=== PATIENT | male | born 1965 | race Caucasian/White ===

== ENCOUNTER → 2019-06-07 | Outpatient (CLI) | payer OTHER ==
--- NOTE | 2019-06-07 14:12 | RAD ---
EXAM: Left extremity arterial Doppler sonogram with ankle-brachial indices (ROSEY). HISTORY: Nonhealing wounds. TECHNIQUE: Doppler sonographic evaluation of the left lower extremity was performed and pressure readings were assessed. FINDINGS: Left brachial pressure: 153 mmHg Left ankle pressure: 165 mmHg Left ROSEY: 1.1 There is an upper limits of normal systolic velocity within the left common femoral artery triphasic waveform. There is a normal triphasic waveform and peak systolic velocity within the proximal left superficial femoral artery. There is an elevated peak systolic velocity within the mid left superficial artery suggesting hemodynamically significant stenosis. There are also monophasic waveforms throughout the remainder of the left lower extremity arteries. No occlusion is seen. IMPRESSION: 1. Suspected hemodynamically significant stenosis within the mid left superficial femoral artery. 2. Monophasic waveforms throughout the left lower extremity arteries, with exception of triphasic waveforms within the common femoral and proximal superficial femoral arteries. This suggests hemodynamically significant proximal stenosis. 2. No evidence of arterial occlusion. 4. Normal left ankle-brachial index. Electronically signed by: Marisel Mittal MD (06/07/2019 2:09 PM) [place] [id number]
== END | disposition home or self-care (01) ==
LOC: US 12:02
PROVIDERS: ATTEND Emergency Medicine Undersea and Hyperbaric Medicine
DX: S81.802A Unspecified open wound, left lower leg, initial encounter (principal); E11.51 Type 2 diabetes mellitus with diabetic peripheral angiopathy without gangrene; I13.0 Hypertensive heart and chronic kidney disease with heart failure and stage 1 through stage 4 chronic kidney disease, or unspecified chronic kidney disease; E11.22 Type 2 diabetes mellitus with diabetic chronic kidney disease; N18.9 Chronic kidney disease, unspecified; I50.9 Heart failure, unspecified; E78.5 Hyperlipidemia, unspecified; M19.90 Unspecified osteoarthritis, unspecified site; J44.9 Chronic obstructive pulmonary disease, unspecified; K21.9 Gastro-esophageal reflux disease without esophagitis; F32.9 Major depressive disorder, single episode, unspecified; Z87.891 Personal history of nicotine dependence; X58.XXXA Exposure to other specified factors, initial encounter; Y93.89 Activity, other specified; Y92.89 Other specified places as the place of occurrence of the external cause; Y99.8 Other external cause status
CPT/HCPCS: 93922; 93926

== ENCOUNTER 2019-11-22 10:16 | Outpatient (CLI) | payer MEDICAID, MEDICARE ==
[2019-11-22] VITALS (8 sets, daily range): BP systolic 130–185; BP diastolic 80–106
[~2019-11-22] VITALS: Ht 175.3 cm; Wt 102.5 kg
[~2019-11-22 10:16] MED LIST: IODIXANOL 320 MG/ML 100 ML VIAL. ONE; LIDOCAINE 1% Multi-Dose 20 ML VIAL. ONE
[2019-11-22] MEDS ORDERED: IV NORMAL SALINE 1000ML BAG 1,000 ML IV SCH (10:34)
[2019-11-22 10:57] LABS: CALCIUM 8.6 mg/dL (8.5-10.1); CREATININE 1.5 mg/dL (0.7-1.3); GFR 48.8; POTASSIUM 4.6 mmol/L (3.5-5.1)
[2019-11-22 11:03] LABS: HEMATOCRIT 47.3 % (39.0-53.0); HEMOGLOBIN 15.5 g/dL (13.0-17.5); RED BLOOD COUNT 4.28 x10^6/uL (4.30-5.70); RED CELL DISTRIBUTION WIDTH 17.2 % (11.5-14.5); WHITE BLOOD COUNT 10.1 x10^3/uL (4.0-11.0)
[2019-11-22] MEDS ORDERED: ASPI1TAB31 PO (11:04)
[2019-11-22] MEDS ORDERED: CARV6.2511 PO (11:04)
[2019-11-22] MEDS ORDERED: INSU100V13 SQ (11:04)
[2019-11-22] MEDS ORDERED: OMEP40CA45 PO (11:04)
[2019-11-22] MEDS ORDERED: GABA300C18 PO (11:04)
[2019-11-22] MEDS ORDERED: BUDE10.2 IH (11:04)
[2019-11-22] MEDS ORDERED: HYDR-2765 PO (11:04)
[2019-11-22] MEDS ORDERED: ALBU2.5V8 IH (11:04)
[2019-11-22] MEDS ORDERED: CHOL200078 PO (11:04)
[2019-11-22] MEDS ORDERED: ATOR40TA59 PO (11:04)
[2019-11-22] MEDS ORDERED: TAMS0.4C97 PO (11:04)
[2019-11-22] MEDS ORDERED: LISI-338 PO (11:04)
[2019-11-22] MEDS ORDERED: INSU100I17 SQ (11:04)
[2019-11-22] MEDS ORDERED: MIDAZOLAM HCL/PF 2 MG/2 ML VIAL. ONE (12:03)
[2019-11-22] MEDS ORDERED: fentaNYL PF VIAL 100 MCG/2 ML VIAL ONE (12:03)
[2019-11-22] MEDS ORDERED: MIDAZOLAM HCL/PF 2 MG/2 ML VIAL. IV ONE (12:15)
[2019-11-22] MEDS ORDERED: IODIXANOL 320 MG/ML 100 ML VIAL. IART ONE (12:15)
[2019-11-22] MEDS ORDERED: fentaNYL PF VIAL 100 MCG/2 ML VIAL IV ONE (12:15)
[2019-11-22] MEDS ORDERED: LIDOCAINE 1% Multi-Dose 20 ML VIAL. INJ ONE (12:15)
[2019-11-22] MEDS ORDERED: CONTRAST GIVEN. MC PRN (12:30)
[2019-11-22] MEDS ORDERED: HEPARIN for IV BOLUS 10,000 UNIT/10 ML VIAL. ONE (13:40)
[2019-11-22] MEDS ORDERED: HEPARIN for IV BOLUS 10,000 UNIT/10 ML VIAL. IV ONE (13:45)
[2019-11-22] MEDS ORDERED: CLOPIDOGREL BISULFATE 75 MG TABLET ONE (14:04)
[2019-11-22] MEDS ORDERED: CLOPIDOGREL BISULFATE 75 MG TABLET PO ONE (14:15)
--- NOTE | 2019-11-22 14:35 | PDOC4 ---
OPERATIVE NOTE Date: Date: Nov 22, 2019 Pre-Op Diagnosis: Atherosclerosis of [place]qu[place] arteries of left lower extremity with ulceration of other part of the foot (toes) Diabetes mellitus with peripheral vascular disease Post-Op Diagnosis: Same as above Procedure Performed: 1. Ultrasound-guided access right common femoral artery 2. left superficial femoral artery balloon angioplasty #3 radiology supervision interpretation aortogram #4 radiology supervision for potential left lower extremity runoff 5 closure device placement 6 [place]ian Angio-Seal right femoral artery access Surgeon: Nain Villalobos MD Anesthesia Type: Conscious sedation under surgeon RN supervision using intravenous fentanyl and Versed 34 minutes total, Versed 1.5 mg fentanyl 100 mcg Blood Loss: Minimal Specimans Obtained: None Findings: On carbon dioxide angiography the aorta is widely patent without aneurysm or significant stenosis, on carbon oxide angiogram the iliac arteries are widely patent without significant stenosis Left common femoral profunda femoris appear widely patent Left superficial femoral artery with diffuse calcified stenosis, multiple focal areas over 50% After balloon angioplasty there is minimal residual stenosis and no dissection therefore this was treated with a drug-eluting balloon There is a high takeoff of the anterior tibial artery which gives inline flow to the foot and good collateralization to the pedal arch Complications: None Operative Note: Patient was taken to the Senior Applications Architect and placed supine the table. The groins were prepped and draped in usual sterile fashion a timeout was performed. After placement of appropriate monitoring devices conscious sedation was induced under surgeon or in supervision using intravenous fentanyl and Versed. Attention was directed the right groin where the right common femoral arteries fluoroscopically marked over the femoral head and exam with ultrasound. The vessels found to be widely patent with flow in an image of the vessels taken and saved for the medical record. Under real-time ultrasound guidance local anesthetic was injected in the right groin the right common femoral artery was accessed in retrograde fashion using micropuncture needle. This was used to introduce a micropuncture wire to the aorta and exchanged the needle for a micropuncture sheath. This back blood easily was used to introduce a Bentson wire and abdominal aorta. The Bentson wire was used to exchange the micropuncture sheath for a 5 [place]ian [place] sheath and this was aspirated flushed with difficulty. These were used to introduce a flush catheter abdominal aorta and a carbon dioxide aortogram was obtained. The cath was pulled back to the right bifurcation and oblique pelvic angiograms were obtained using carbon dioxide. The cath was used to acute bifurcation and passed a wire and then the catheter in the left common femoral artery and left leg runoff was obtained with carbon dioxide for the SFA and 50% contrast for the popliteal and tibial vessels. Based on these we decided to intervene on the SFA for limb salvage given the nonhealing wound to left foot. A supra core wire was passed to the catheter into the left popliteal artery and used to exchange the 5 Mal[place]ian sheath for a 6 Malawian 45 cm Terumo destination sheath passed up and over the bifurcation with the distal tip in the left common femoral artery. Patient was given intravenous heparin as this was done. I used the wire to introduce a 6 x 200 Rogers angioplasty balloon and performed angioplasty of the entire SFA. Follow-up angiography showed minimal residual stenosis without dissection or complication so therefore I treated the entire SFA with a 6 x 250 cm Admiral drug-eluting balloon. The patient is a poor candidate for surgery, already has an amputation on the other side is medically ill therefore felt this was justified. The completion anagrams showed minimal stenosis throughout the SFA, the popliteals widely patent in the anterior tibial runoff was uncompromised to the foot with brisk flow up to the foot and open pedal arch. The sheath was pulled back to the right bifurcation and the wire was advanced into the aorta. The sheath was removed over the wire and the wire was used to deliver a 6 [place] Angio-Seal device which was deployed at the right femoral artery access site with excellent hemostasis. Patient was escorted recovery. He was loaded with 300 mg of Plavix and will be continued on Plavix for the next 3 months or so. There were no complications in her told her procedure well throughout. I discussed the results with him and his . MANUEL VILLALOBOS MD Nov 22, 2019 14:35
[2019-11-22] MEDS ORDERED: CLOP75TA PO (14:55)
--- NOTE | 2019-11-22 16:13 | NUR ---
Discharge Note: JOANN CHAMPION Discharge instructions and discharge home medications reviewed with Patient and a copy given. All questions have been answered and understanding verbalized. The following instructions and handouts were given: groin site care and adult moderate sedation Discontinued lines and drains: Peripheral IV intact. Patient discharged to Home or Self Care withSpousevia Wheelchair
== END 2019-11-22 16:12 | disposition home or self-care (01) ==
LOC: CCL 10:16
PROVIDERS: ATTEND Surgery Vascular Surgery
DX: I70.245 Atherosclerosis of native arteries of left leg with ulceration of other part of foot (principal); L97.529 Non-pressure chronic ulcer of other part of left foot with unspecified severity; E11.9 Type 2 diabetes mellitus without complications
CPT/HCPCS: 36415; 37224; 75625; 75710; 76937; 80048; 85027; 85610; C1725; C1760; C1769; C1892; C1894; C2623; J1644; J2250; J3010; J3490; J7030; Q9967; 99152; 99153; G0269; C1771

== ENCOUNTER → 2020-02-05 | Outpatient (CLI) | payer MEDICARE, OTHER ==
[2019-11-22 15:44] VITALS: BP 182/106
[~2020-02-05] MED LIST changes: +ALBU2.5V8 IH; +ASPI1TAB31 PO; +ATOR40TA59 PO; +BUDE10.2 IH; +CARV6.2511 PO; +CETI10TA16 PO; +CHOL200078 PO; +CLOP75TA PO; +GABA300C18 PO; +HEPARIN SODIUM 5,000 UNIT in IV NORMAL SALINE 500ML BAG 500 ML IRR ONE; +HYDR-2765 PO; +INSU100I17 SQ; +INSU100V13 SQ; -IODIXANOL 320 MG/ML 100 ML VIAL. ONE; -LIDOCAINE 1% Multi-Dose 20 ML VIAL. ONE; +LISI-338 PO; +METO10TA81 PO; +NITR0.4T22 SL; +OLAN7.5T5 PO; +OMEP40CA45 PO; +PRAV80TA2 PO; +TAMS0.4C97 PO; +TEST5GEL TD; +TORS10TA3 PO; +VENL37.5 PO
== END | disposition home or self-care (01) ==
LOC: LAB 12:29
PROVIDERS: ATTEND Surgery Vascular Surgery
DX: Z01.818 Encounter for other preprocedural examination (principal); Z11.59 Encounter for screening for other viral diseases; I73.9 Peripheral vascular disease, unspecified
CPT/HCPCS: C9803; U0003; 36415

== ENCOUNTER → 2020-02-14 | Day surgery (SDC) | payer MEDICARE, OTHER ==
[~2020-02-14] VITALS: Ht 175.3 cm; Wt 93.4 kg
[~2020-02-14] MED LIST changes: +ASPI-630 PO; +ASPI325T8 PO; +BUPIVACAINE MPF 0.5% 30 ML VIAL. ONE; +BUPR200T2 PO; +BUSP5TAB PO; +CARV25TA2 PO; +CEPH-264 PO; +CRESTOR5 MG PO; +DEXAMETHASONE SOD PHOS 4 MG/ML VIAL ONE; +GELATIN SPONGE SIZE 12-7MM SPONGE. ONE; +HYDROmorphone 2 MG/ML VIAL IV PRN; +INSULIN LISPRO 100 UNIT/ML 3ML VIAL for OP,RR ONLY. SQ PRN; +IOHEXOL 300 MG/ML 50 ML VIAL. ONE; +ISOS20TA2 PO; +IV RINGERS,LACTATED 1000ML 1,000 ML IV SCH; +LIDOCAINE 1% Multi-Dose 20 ML VIAL. ONE; +LIDOCAINE 2% PF 5 ML VIAL. ONE; +LISI2.5T PO; +MORPHINE SULFATE 2 MG/ML VIAL. IV PRN; +NYST15PO9 TP; +ONDANSETRON PF 4 MG/2 ML VIAL. IV PRN; +ONDANSETRON PF 4 MG/2 ML VIAL. ONE; +PAPAVERINE 60 MG/2 ML VIAL. ONE; +PROPOFOL 10 MG/ML (20ML) VIAL. IV ONE; +ROCURONIUM 50 MG/5 ML VIAL. ONE; +SURGICEL FIBRILLAR 1X2 EACH. ONE; +TESTOSTERONE 1.62%; +THROMBIN TOPICAL 5,000 UNIT VIAL. ONE; +VENL150C PO; +fentaNYL PF VIAL 100 MCG/2 ML VIAL IV PRN; +fentaNYL PF VIAL 100 MCG/2 ML VIAL ONE
[2020-02-14 10:40] VITALS: BP 156/81
[2020-02-14 11:05] LABS: CALCIUM 8.2 mg/dL (8.5-10.1); CREATININE 1.7 mg/dL (0.7-1.3); GFR 42.1; POTASSIUM 4.8 mmol/L (3.5-5.1)
[2020-02-14 11:40] LABS: BASO % 1 % (0-3); EOS # 0.2 x10^3/uL (0.0-0.7); EOS % 2 % (0-3); HEMATOCRIT 44.5 % (39.0-53.0); HEMOGLOBIN 14.6 g/dL (13.0-17.5); LYMPH # 1.1 x10^3/uL (1.0-4.8); LYMPH % 15 % (24-48); MEAN CORPUSCULAR HEMOGLOBIN 36 pg (25-35); MEAN CORPUSCULAR HGB CONC 33 g/dL (31-37); MEAN CORPUSCULAR VOLUME 110 fL (79-100); MONO # 0.6 x10^3/uL (0.0-1.1); MONO % 8 % (0-9); NEUT # 5.8 x10^3/uL (1.8-7.7); NEUT % 75 % (31-73); PLATELET COUNT 82 x10^3/uL (140-400); RED BLOOD COUNT 4.06 x10^6/uL (4.30-5.70); WHITE BLOOD COUNT 7.8 x10^3/uL (4.0-11.0)
--- NOTE | 2020-02-14 12:27 | NUR ---
AFTER SPEAKING TO DR MUNROE PT HAS CHOSEN TO FORGO SURGERY AND REQUESTS IV BE REMOVED SO HE CAN LEAVE. SL REMOVED AND PTS ASSISTING HIM IN RE DRESSING.
== END ==
LOC: OPSVCIP 10:03 → SDC 10:03 → UNDOADMIN 10:03 → EDSTATUS 12:00 → UNDODISIN 12:27
PROVIDERS: ATTEND Surgery Vascular Surgery
DX: Z53.20 Procedure and treatment not carried out because of patient's decision for unspecified reasons (principal); R60.0 Localized edema; Z68.30 Body mass index [BMI] 30.0-30.9, adult; T87.89 Other complications of amputation stump; E11.622 Type 2 diabetes mellitus with other skin ulcer; L97.212 Non-pressure chronic ulcer of right calf with fat layer exposed; G47.30 Sleep apnea, unspecified; F17.210 Nicotine dependence, cigarettes, uncomplicated; E78.5 Hyperlipidemia, unspecified; I73.9 Peripheral vascular disease, unspecified; K21.9 Gastro-esophageal reflux disease without esophagitis; Z79.01 Long term (current) use of anticoagulants; Z89.9 Acquired absence of limb, unspecified; Z86.73 Personal history of transient ischemic attack (TIA), and cerebral infarction without residual deficits; I12.9 Hypertensive chronic kidney disease with stage 1 through stage 4 chronic kidney disease, or unspecified chronic kidney disease
CPT/HCPCS: 36415; 80048; 82962; 85025; J1815; J3010; J7120; J0690; J1100; J1644; J2405; J2440; J2704; J3490; J7040; Q9967

== ENCOUNTER → 2020-03-28 | Outpatient (CLI) | payer MEDICARE, OTHER ==
[2020-02-14 10:40] VITALS: BP 156/81
[~2020-03-28] MED LIST changes: -BUPIVACAINE MPF 0.5% 30 ML VIAL. ONE; -DEXAMETHASONE SOD PHOS 4 MG/ML VIAL ONE; -GELATIN SPONGE SIZE 12-7MM SPONGE. ONE; -HEPARIN SODIUM 5,000 UNIT in IV NORMAL SALINE 500ML BAG 500 ML IRR ONE; -HYDROmorphone 2 MG/ML VIAL IV PRN; -INSULIN LISPRO 100 UNIT/ML 3ML VIAL for OP,RR ONLY. SQ PRN; -IOHEXOL 300 MG/ML 50 ML VIAL. ONE; -IV RINGERS,LACTATED 1000ML 1,000 ML IV SCH; -LIDOCAINE 1% Multi-Dose 20 ML VIAL. ONE; -LIDOCAINE 2% PF 5 ML VIAL. ONE; -MORPHINE SULFATE 2 MG/ML VIAL. IV PRN; -ONDANSETRON PF 4 MG/2 ML VIAL. IV PRN; -ONDANSETRON PF 4 MG/2 ML VIAL. ONE; -PAPAVERINE 60 MG/2 ML VIAL. ONE; -PROPOFOL 10 MG/ML (20ML) VIAL. IV ONE; -ROCURONIUM 50 MG/5 ML VIAL. ONE; -SURGICEL FIBRILLAR 1X2 EACH. ONE; -THROMBIN TOPICAL 5,000 UNIT VIAL. ONE; -fentaNYL PF VIAL 100 MCG/2 ML VIAL IV PRN; -fentaNYL PF VIAL 100 MCG/2 ML VIAL ONE
== END | disposition home or self-care (01) ==
LOC: LAB 12:35
PROVIDERS: ATTEND Surgery Vascular Surgery
DX: Z01.818 Encounter for other preprocedural examination (principal); Z11.59 Encounter for screening for other viral diseases
CPT/HCPCS: C9803; U0003

== ENCOUNTER 2020-04-03 07:52 | Inpatient (IN) | payer MEDICARE, OTHER ==
[~2020-04-03] VITALS: Ht 175.3 cm; Wt 117.4 kg
[2020-04-03] VITALS (11 sets, daily range): BP systolic 132–163; BP diastolic 63–83
[~2020-04-03 07:52] MED LIST changes: -ASPI325T8 PO; -BUSP5TAB PO; -CEPH-264 PO; +HEPARIN SODIUM 5,000 UNIT in IV NORMAL SALINE 500ML BAG 500 ML IRR ONE; +HYDROmorphone 2 MG/ML VIAL IV PRN; +IV RINGERS,LACTATED 1000ML 1,000 ML IV SCH; +LIDOCAINE 1% PF 2 ML VIAL. ID PRN; -LISI2.5T PO; -NYST15PO9 TP; +ONDANSETRON PF 4 MG/2 ML VIAL. IV PRN; +PROCHLORPERAZINE 10 MG/2 ML VIAL. IV PRN; -TESTOSTERONE 1.62%; -VENL150C PO; +fentaNYL PF VIAL 100 MCG/2 ML VIAL IV PRN
[2020-04-03] MEDS: INSULIN LISPRO 100 UNIT/ML 3ML VIAL for OP,RR ONLY. SQ PRN ×2 (08:34→15:05)
[2020-04-03 08:41] LABS: BASO # 0.1 x10^3/uL (0.0-0.2); BASO % 1 % (0-3); EOS # 0.2 x10^3/uL (0.0-0.7); EOS % 2 % (0-3); HEMOGLOBIN 14.1 g/dL (13.0-17.5); LYMPH # 1.5 x10^3/uL (1.0-4.8); LYMPH % 11 % (24-48); MEAN CORPUSCULAR HEMOGLOBIN 35 pg (25-35); MEAN CORPUSCULAR HGB CONC 33 g/dL (31-37); MEAN CORPUSCULAR VOLUME 105 fL (79-100); MONO # 0.8 x10^3/uL (0.0-1.1); MONO % 6 % (0-9); NEUT # 10.9 x10^3/uL (1.8-7.7); NEUT % 80 % (31-73); PLATELET COUNT 197 x10^3/uL (140-400); RED BLOOD COUNT 4.09 x10^6/uL (4.30-5.70); RED CELL DISTRIBUTION WIDTH 17.3 % (11.5-14.5); WHITE BLOOD COUNT 13.6 x10^3/uL (4.0-11.0)
[2020-04-03] MEDS ORDERED: GLYCOPYRROLATE 1 MG/5 ML VIAL. ONE (08:46)
[2020-04-03] MEDS ORDERED: SEVOFLURANE > 120 MINUTES. IH ONE (08:46)
[2020-04-03] MEDS ORDERED: NEOSTIGMINE METHYLSULFATE 5 MG/5 ML SYRINGE. ONE (08:47)
[2020-04-03] MEDS ORDERED: MIDAZOLAM HCL/PF 2 MG/2 ML VIAL. ONE (08:47)
[2020-04-03] MEDS ORDERED: ROCURONIUM 50 MG/5 ML VIAL. ONE (08:47)
[2020-04-03] MEDS ORDERED: LIDOCAINE 2% PF 5 ML VIAL. ONE (08:47)
[2020-04-03] MEDS ORDERED: PROPOFOL 10 MG/ML (20ML) VIAL. IV ONE (08:47)
[2020-04-03] MEDS ORDERED: fentaNYL PF VIAL 100 MCG/2 ML VIAL ONE ×3 (08:47→14:37)
[2020-04-03] MEDS ORDERED: ONDANSETRON PF 4 MG/2 ML VIAL. ONE (08:48)
[2020-04-03] MEDS ORDERED: DEXAMETHASONE SOD PHOS 4 MG/ML VIAL ONE (08:48)
[2020-04-03 08:54] LABS: CALCIUM 9.1 mg/dL (8.5-10.1); CREATININE 1.8 mg/dL (0.7-1.3); GFR 39.4; POTASSIUM 4.7 mmol/L (3.5-5.1)
[2020-04-03] MEDS ORDERED: IOHEXOL 300 MG/ML 50 ML VIAL. ONE (09:22)
[2020-04-03] MEDS ORDERED: SURGICEL FIBRILLAR 1X2 EACH. ONE (09:23)
[2020-04-03] MEDS ORDERED: BUPIVACAINE-EPI 0.25%-1:200000 MPF 30 ML VIAL. ONE ×2 (10:33→10:58)
[2020-04-03] MEDS ORDERED: HEPARIN for IV BOLUS 10,000 UNIT/10 ML VIAL. ONE (10:54)
[2020-04-03] MEDS ORDERED: PROTAMINE 50 MG/5 ML VIAL. IV ONE (12:43)
--- NOTE | 2020-04-03 13:44 | PDOC1 ---
History and Physical Date of Admission Date of Admission DATE: 04/03/20 TIME: 13:39 Identification/Chief Complaint Chief Complaint 54-year-old male with known peripheral vascular disease, diabetes mellitus, history of below-knee amputation on the right in 2017 who has significant common femoral and profunda femoral occlusive disease which is felt to be contributing to his lack of wound healing of a new wound on his distal right BKA stump. He has previously undergone angiography and presents today for elective right iliofemoral profundofemoral endarterectomy and some debridement to attempt to save his BKA stump Source Source: Patient History of Present Illness History of Present Illness Patient is a 54-year-old male with diabetes mellitus, coronary disease, dyslipidemia, history of stroke, history of right below-knee amputation due to above and PAD. His initial right below-knee amputation was in 2017. He presented back with a new wound on the distal stump of the BKA that failed to heal despite aggressive wound care. I took him to the Assistant Baseball Coach and performed a diagnostic angiography and this suggested limited flow to the BKA stump due to iliofemoral occlusive disease. I counseled him on options and he presents today for iliofemoral endarterectomy and profundofemoral endarterectomy to maximize blood flow to the BKA stump to attempt to heal this wound. The procedure to include risks, benefits, alternatives were discussed with him extensively preoperatively presents today and wishes to proceed. Of note, we will try to get this procedure done several weeks ago but he showed up and then left AGAINST MEDICAL ADVICE and refused the procedure the date was scheduled. Today he is agreeable and wishes to proceed. Past Medical History Cardiovascular: HTN, Hyperlipidemia CENTRAL NERVOUS SYSTEM: Migraine Renal/: Chronic renal insuff, Prostate Ca. Endocrine: Diabetes Past Surgical History Past Surgical History Below-knee amputation right Past Surgical History: Cholecystectomy Social History ALCOHOL: occassional Drugs: None Current Medications Current Medications Current Medications Heparin Sodium (Porcine) 5000 unit/Sodium Chloride 505 ml @ 505 mls/hr 1X ONCE IRR Last administered on 04/03/20at 11:32; Start 04/03/20 at 06:00; Stop 04/03/20 at 06:59; Status DC Cefazolin Sodium 1 gm/Sodium Chloride 500 ml @ 500 mls/hr 1X ONCE IRR ; Start 04/03/20 at 06:00; Stop 04/03/20 at 06:59; Status DC Ondansetron HCl (Zofran) 4 mg PRN Q6HRS PRN IV NAUSEA/VOMITING; Start 04/03/20 at 07:00; Stop 04/04/20 at 06:59 Fentanyl Citrate (Fentanyl 2ml Vial) 25 mcg PRN Q5MIN PRN IV MILD PAIN 1-3; Start 04/03/20 at 07:00; Stop 04/04/20 at 06:59 Fentanyl Citrate (Fentanyl 2ml Vial) 50 mcg PRN Q5MIN PRN IV MODERATE TO SEVERE PAIN; Start 04/03/20 at 07:00; Stop 04/04/20 at 06:59 Morphine Sulfate (Morphine Sulfate) 1 mg PRN Q10MIN PRN IV SEVERE PAIN 7-10; Start 04/03/20 at 07:00; Stop 04/04/20 at 06:59 Ringer's Solution 1,000 ml @ 30 mls/hr Q24H IV Last administered on 04/03/20at 08:36; Start 04/03/20 at 07:00; Stop 04/03/20 at 18:59 Lidocaine HCl (Xylocaine-Mpf 1% 2ml Vial) 2 ml PRN 1X PRN ID PRIOR TO IV START; Start 04/03/20 at 07:00; Stop 04/04/20 at 06:59 Hydromorphone HCl (Dilaudid) 0.5 mg PRN Q10MIN PRN IV SEV PAIN, Second choice; Start 04/03/20 at 07:00; Stop 04/04/20 at 06:59 Prochlorperazine Edisylate (Compazine) 5 mg PACU PRN PRN IV NAUSEA, MRX1; Start 04/03/20 at 07:00; Stop 04/04/20 at 06:59 Cefazolin Sodium/ Dextrose 50 ml @ 100 mls/hr 1X PREOP PRN IV PRIOR TO PROCEDURE Last administered on 04/03/20at 10:25; Start 04/03/20 at 06:00; Stop 04/03/20 at 18:00 Insulin Human Lispro (HumaLOG VIAL for OP,RR ONLY) 0-10 units PRN Q1HR PRN SQ PER PROTOCOL Last administered on 04/03/20at 08:34; Start 04/03/20 at 08:30; Stop 04/04/20 at 08:29 Glycopyrrolate (Robinul) 1 mg STK-MED ONCE .ROUTE ; Start 04/03/20 at 08:46; Stop 04/03/20 at 08:47; Status DC Sevoflurane (Ultane) 90 ml STK-MED ONCE IH ; Start 04/03/20 at 08:46; Stop 04/03/20 at 08:47; Status DC Rocuronium [place] (Zemuron) 50 mg STK-MED ONCE .ROUTE ; Start 04/03/20 at 08:47; Stop 04/03/20 at 08:47; Status DC Fentanyl Citrate (Fentanyl 2ml Vial) 100 mcg STK-MED ONCE .ROUTE ; Start 04/03/20 at 08:47; Stop 04/03/20 at 08:47; Status DC Neostigmine [place] (Neostigmine Methylsulfate) 5 mg STK-MED ONCE .ROUTE ; Start 04/03/20 at 08:47; Stop 04/03/20 at 08:47; Status DC Midazolam HCl (Versed) 2 mg STK-MED ONCE .ROUTE ; Start 04/03/20 at 08:47; Stop 04/03/20 at 08:48; Status DC Propofol (Diprivan) 200 mg STK-MED ONCE IV ; Start 04/03/20 at 08:47; Stop 04/03/20 at 08:48; Status DC Lidocaine HCl (Lidocaine Pf 2% Vial) 5 ml STK-MED ONCE .ROUTE ; Start 04/03/20 at 08:47; Stop 04/03/20 at 08:48; Status DC Ondansetron HCl (Zofran) 4 mg STK-MED ONCE .ROUTE ; Start 04/03/20 at 08:48; Stop 04/03/20 at 08:48; Status DC Dexamethasone Sodium Phosphate (Decadron) 4 mg STK-MED ONCE .ROUTE ; Start 04/03/20 at 08:48; Stop 04/03/20 at 08:48; Status DC Iohexol (Omnipaque 300 Mg/ml) 50 ml STK-MED ONCE .ROUTE ; Start 04/03/20 at 09:22; Stop 04/03/20 at 09:23; Status DC Cellulose (Surgicel Fibrillar 1x2) 1 each STK-MED ONCE .ROUTE Last administered on 04/03/20at 13:10; Start 04/03/20 at 09:23; Stop 04/03/20 at 09:23; Status DC Bupivacaine HCl/ Epinephrine Bitart (Sensorcaine-Epi 0.25%-1:[id number] Mpf) 30 ml STK-MED ONCE .ROUTE ; Start 04/03/20 at 10:33; Stop 04/03/20 at 10:34; Status DC Heparin Sodium (Porcine) (Heparin Sodium) 10,000 unit STK-MED ONCE .ROUTE ; Start 04/03/20 at 10:54; Stop 04/03/20 at 10:54; Status DC Bupivacaine HCl/ Epinephrine Bitart (Sensorcaine-Epi 0.25%-1:239252 Mpf) 30 ml STK-MED ONCE .ROUTE Last administered on 04/03/20at 11:38; Start 04/03/20 at 10:58; Stop 04/03/20 at 10:58; Status DC Protamine Sulfate (Protamine) 50 mg STK-MED ONCE IV ; Start 04/03/20 at 12:43; Stop 04/03/20 at 12:44; Status DC Fentanyl Citrate (Fentanyl 2ml Vial) 100 mcg STK-MED ONCE .ROUTE ; Start 04/03/20 at 13:17; Stop 04/03/20 at 13:18; Status DC Active Scripts Active Reported Aspirin 81 Mg Tab.chew 81 Mg PO DAILY Crestor (Rosuvastatin Calcium) 5 Mg Tablet 20 Mg PO HS Isosorbide Mononitrate 20 Mg Tablet 30 Mg PO DAILY Carvedilol 25 Mg Tablet 12.5 Mg PO BIDWMEALS Wellbutrin Sr (Bupropion Hcl) 200 Mg Tablet.er 300 Mg PO DAILY Effexor Xr (Venlafaxine Hcl) 37.5 Mg Cap.er.24h 75 Mg PO DAILY Torsemide 10 Mg Tablet 10 Mg PO PRN DAILY PRN Olanzapine 7.5 Mg Tablet 7.5 Mg PO DAILY NITROGLYCERIN SubLingual (Nitroglycerin) 0.4 Mg Tab.subl 0.4 Mg SL PRN Q5MIN PRN Reglan (Metoclopramide Hcl) 10 Mg Tablet 10 Mg PO QIDACHS Cetirizine Hcl 10 Mg Tablet 10 Mg PO DAILY Clopidogrel (Clopidogrel Bisulfate) 75 Mg Tablet 1 Tab PO DAILY Flomax (Tamsulosin Hcl) 0.4 Mg Cap.er.24h 0.4 Mg PO DAILY Omeprazole 40 Mg Capsule.dr 40 Mg PO DAILY Lisinopril 5 Mg Tablet 5 Mg PO DAILY Levemir (Insulin Detemir) 100 Unit/1 Ml Vial 45 Unit SQ HS Novolog Flexpen (Insulin Aspart) 100 Unit/1 Ml Insuln.pen 10 Unit SQ PRN PRN Hydrocodone-Apap 7.5-325 (Hydrocodone Bit/Acetaminophen) 1 Tab Tablet 1 Tab PO PRN Q8HRS PRN Gabapentin (Gabapentin) 300 Mg Capsule 600 Mg PO TID Vitamin D3 (Cholecalciferol (Vitamin D3)) 2,000 Unit Tab.chew 0.5 Tab PO DAILY 30 Days Symbicort 160-4.5 Mcg Inhaler (Budesonide/Formoterol Fumarate) 10.2 Gm Hfa.aer.ad 2 Puff IH BID Excedrin Migraine Caplet (Aspirin/Acetaminophen/Caffeine) 1 Each Tablet 1 Each PO PRN PRN Proair Hfa Inhaler (Albuterol Sulfate) 8.5 Gm Hfa.aer.ad 2 Puff IH PRN Q4-6HRS PRN 21 Days Allergies Allergies: Coded Allergies: I S O L A T I O N *CONTACT* (Verified Allergy, Unknown, 04/03/20) mrsa No Known Medication Allergies (Verified Allergy, Unknown, 04/03/20) Physical Exam Physical Exam Right below-knee amputation stump open wound to the distal tip General: Alert, Oriented X3 HEENT: Atraumatic Lungs: Clear to auscultation Heart: S1S2, RRR Abdomen: Normal bowel sounds, Soft Rectal Exam: not examined Extremities: No clubbing, No cyanosis Vitals Vitals Vital Signs Date Time Temp Pulse Resp B/P (MAP) Pulse Ox O2 Delivery O2 Flow Rate FiO2 04/03/20 08:27 97.7 86 20 132/72 94 Room Air 97.7 Labs Labs Laboratory Tests Test 04/03/20 08:31 04/03/20 08:32 Glucose (Fingerstick) 115 mg/dL (70-99) White Blood Count 13.6 x10^3/uL (4.0-11.0) Red Blood Count 4.09 x10^6/uL (4.30-5.70) Hemoglobin 14.1 g/dL (13.0-17.5) Hematocrit 43.0 % (39.0-53.0) Mean Corpuscular Volume 105 fL (79-100) Mean Corpuscular Hemoglobin 35 pg (25-35) Mean Corpuscular Hemoglobin Concent 33 g/dL (31-37) Red Cell Distribution Width 17.3 % (11.5-14.5) Platelet Count 197 x10^3/uL (140-400) Neutrophils (%) (Auto) 80 % (31-73) Lymphocytes (%) (Auto) 11 % (24-48) Monocytes (%) (Auto) 6 % (0-9) Eosinophils (%) (Auto) 2 % (0-3) Basophils (%) (Auto) 1 % (0-3) Neutrophils # (Auto) 10.9 x10^3/uL (1.8-7.7) Lymphocytes # (Auto) 1.5 x10^3/uL (1.0-4.8) Monocytes # (Auto) 0.8 x10^3/uL (0.0-1.1) Eosinophils # (Auto) 0.2 x10^3/uL (0.0-0.7) Basophils # (Auto) 0.1 x10^3/uL (0.0-0.2) Sodium Level 138 mmol/L (136-145) Potassium Level 4.7 mmol/L (3.5-5.1) Chloride Level 103 mmol/L (98-107) Carbon Dioxide Level 24 mmol/L (21-32) Anion Gap 11 (6-14) Blood Urea Nitrogen 28 mg/dL (8-26) Creatinine 1.8 mg/dL (0.7-1.3) Estimated GFR (Cockcroft-Gault) 39.4 Glucose Level 119 mg/dL (70-99) Calcium Level 9.1 mg/dL (8.5-10.1) Laboratory Tests Test 04/03/20 08:31 04/03/20 08:32 Glucose (Fingerstick) 115 mg/dL (70-99) White Blood Count 13.6 x10^3/uL (4.0-11.0) Red Blood Count 4.09 x10^6/uL (4.30-5.70) Hemoglobin 14.1 g/dL (13.0-17.5) Hematocrit 43.0 % (39.0-53.0) Mean Corpuscular Volume 105 fL (79-100) Mean Corpuscular Hemoglobin 35 pg (25-35) Mean Corpuscular Hemoglobin Concent 33 g/dL (31-37) Red Cell Distribution Width 17.3 % (11.5-14.5) Platelet Count 197 x10^3/uL (140-400) Neutrophils (%) (Auto) 80 % (31-73) Lymphocytes (%) (Auto) 11 % (24-48) Monocytes (%) (Auto) 6 % (0-9) Eosinophils (%) (Auto) 2 % (0-3) Basophils (%) (Auto) 1 % (0-3) Neutrophils # (Auto) 10.9 x10^3/uL (1.8-7.7) Lymphocytes # (Auto) 1.5 x10^3/uL (1.0-4.8) Monocytes # (Auto) 0.8 x10^3/uL (0.0-1.1) Eosinophils # (Auto) 0.2 x10^3/uL (0.0-0.7) Basophils # (Auto) 0.1 x10^3/uL (0.0-0.2) Sodium Level 138 mmol/L (136-145) Potassium Level 4.7 mmol/L (3.5-5.1) Chloride Level 103 mmol/L (98-107) Carbon Dioxide Level 24 mmol/L (21-32) Anion Gap 11 (6-14) Blood Urea Nitrogen 28 mg/dL (8-26) Creatinine 1.8 mg/dL (0.7-1.3) Estimated GFR (Cockcroft-Gault) 39.4 Glucose Level 119 mg/dL (70-99) Calcium Level 9.1 mg/dL (8.5-10.1) Images Images Previous angiogram reviewed VTE Prophylaxis Ordered VTE Prophylaxis Devices: Contraindicated VTE Pharmacological Prophylaxi: Contraindicated Assessment/Plan Assessment/Plan Here for right iliofemoral endarterectomy and BKA stump debridement to attempt to salvage his BKA stump. He will need admission overnight after surgical repair. Justicifation of Admission Dx: Justifications for Admission: Justification of Admission Dx: Yes MANUEL VILLALOBOS MD Apr 03, 2020 13:44
--- NOTE | 2020-04-03 13:56 | PDOC4 ---
OPERATIVE NOTE Date: Date: Apr 03, 2020 Pre-Op Diagnosis: Atherosclerosis of [place] arteries of right lower extremity with ulceration of the calf Post-Op Diagnosis: Same as above Procedure Performed: 1. Right iliofemoral endarterectomy 2. Right profundofemoral endarterectomy 3. Debridement of wound right below-knee amputation stump equivalent of the right calf7 cm x 5 cm = 35 cm total square surface area skin and subcutaneous tissue and fascia not including muscle or bone Surgeon: Nain Villalobos MD vascular surgery Anesthesia Type: General Blood Loss: 50 cc at most Specimans Obtained: None Findings: High-grade stenosis at the distal iliac artery entire common femoral artery and most of the first portion of the profunda femoris artery the way down to its initial branches Successful extensive endarterectomy of above vessels The wound at the below-knee amputation stump was relatively superficial and was debrided easily with a good bleeding at the skin edges Complications: None Operative Note: Patient was taken to the operating room and placed supine on the table. The abdomen groins and right lower extremity were prepped and draped in usual sterile fashion. Proper timeout was performed. Attention was directed the right groin where local anesthetic was injected and a small longitudinal incision was made just below the inguinal ligament over the femoral pulse. This is carried down with Bovie cautery until the femoral sheath was identified. I placed an Omni retractor proximally and self-retaining re tractors distally for improved exposure and then the open the femoral sheath longitudinally. The common femoral profunda femoris and proximal superficial femoral arteries were dissected free from surrounding structures and controlled Vesseloops. The iliac artery above the inguinal ligament was heavily calcified and significantly diseased on palpation so the inguinal ligament was mobilized medially and laterally and the Omni retractor was used to elevate the inguinal ligament and retracted cranially so that I was able to expose the iliac artery well above the inguinal ligament. This was dissected free with scissors and the mid external iliac artery was dissected free and a soft spot amenable to Lamping was palpated. The patient was given intravenous heparin. All of the side branches were controlled with Vesseloops and I carried out dissection along the very distal profunda femoris artery quite a distance down past its origin several centimeters and individually controlled branches of the profunda femoris. These branches were individually occluded with Vesseloops and then the external iliac artery well above the inguinal ligament was controlled with a Satinsky clamp. A longitudinal arteriotomy was created with a #11 scalpel and extended with Fam angled scissors starting on the common femoral artery. This was extended proximally and I used a Danforth endarterectomy specialist perform an extensive common femoral endarterectomy. The plaque was still nearly occlusive and quite bulky above the inguinal ligament and so a significant amount of plaque was dissected free circumferentially and then I used tonsils to reach well up into the artery while above the inguinal ligament and remove a large amount of plaque from the iliac artery all the way up to the clamp making this a extensive iliofemoral endarterectomy. Distally I everted some plaque from the superficial femoral artery and there was an old stent in the SFA that was completely occluded and there was no backbleeding from this. The profunda femoris had heavy plaque at its origin and so the arteriotomy was taken down onto the profunda femoris artery and another large a bulky plaque was everted from the profunda femoris artery all the way down to its branch points with a good endpoint. A bovine pericardial patch was brought to the field and used to repair the endarterectomy. The SFA was transected away from the bifurcation. The tapered into the patch was a started distally onto the profunda in the standard profundoplasty fashion and the patch was sewn in place from the profunda femoris up onto the common femoral artery using a running 6-0 Prolene distally and a 5-0 Prolene approximately. Just prior to completion of the pair the vessels are back his blood for flushed irrigated heparinized saline. Repair was completed normal for flow was returned down the leg. A hand-held continuous-wave Doppler confirmed excellent signal in the distal profunda femoris artery. The proximal SFA was ligated with silk ties after the stent was cut out of the proximal SFA. The wounds were irrigated protamine was used to reverse the heparin and excellent hemostasis was achieved. The deep layers were closed with a series of interrupted 2-0 Vicryl followed by a subdermal 3-0 Vicryl and a subcuticular 4-0 Vicryl. The groin was cleaned and dried and a VAC Mariela dressing was placed over the incision. Once the groin had been completely closed and dressed attention was then directed to the right BKA stump. There was a significant amount of nonviable necrotic tissue at the wound and this was irrigated and then debrided aggressively using an excisional debridement technique using scissors and a Bovie cautery to cut away tissue. This was done until there was good healthy tissue at all edges of the wound with good bleeding and a good wound base. Bovie cautery was used to obtain hemostasis. The wound was packed with Kerlix and then the stump was wrapped with Kerlix and a Coban The patient was awakened and extubated operating room and escorted recovery in stable condition. There are no complications and he tolerated procedure well throughout. At the end the case all sponge, needle, and instrument counts reported to me as correct x2. MANUEL VILLALOBOS MD Apr 03, 2020 13:56
[2020-04-03] MEDS ORDERED: INSULIN ASPART 10 UNIT SQ PRN (14:00)
[2020-04-03] MEDS ORDERED: ASA/APAP/CAFFEINE 250/250/65MG TABLET. PO PRN (14:00)
[2020-04-03] MEDS ORDERED: ALBUTEROL SULFATE 2.5 MG/3 ML NEBU. NEB PRN (14:00)
[2020-04-03] MEDS ORDERED: NITROGLYCERIN SUBLINGUAL 0.4 MG BOTTLE OF 25. SL PRN (14:00)
[2020-04-03] MEDS ORDERED: MORPHINE SULFATE 2 MG/ML VIAL. ONE (14:16)
[2020-04-03] MEDS: MORPHINE SULFATE 2 MG/ML VIAL. IV PRN ×2 (14:25→14:54)
[2020-04-03] MEDS: fentaNYL PF VIAL 100 MCG/2 ML VIAL IV PRN ×4 (14:53→22:25)
--- NOTE | 2020-04-03 16:42 | NUR ---
Wound Care Prevena surgical dressing on groin wound is making noise but dressing is sucked down and it is not beeping. Painted area with skin prep and secured with additional drape. Unable to silence prevena. Discussed with RN and and educated if it starts beeping to let us know.
[2020-04-03] MEDS ORDERED: DEXTROSE 50% 25 GM / 50ML DISP.SYRIN. IV PRN (17:00)
--- NOTE | 2020-04-03 17:04 | PDOC2 ---
CONSULT Date of Consult Date of Consult DATE: 04/03/20 TIME: 16:57 Reason for Consult Reason for Consult: Medical management Referring Physician Referring Physician: Dr Zen Whitaker Identification/Chief Complaint Chief Complaint Right stump pain Source Source: Patient History of Present Illness Reason for Visit: Mr Caputo is a 54 yo M w/ PMHx heavy smoker (36 cigarettes per day), CAD, HLD, CKD3, prior CVA, diabetes mellitus, severe PAD s/p below-knee amputation on the right in 2017 who presented to vascular surgery for poorly healing right BKA stump wound. 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 Labs significant for WBC 13.6, Hb 14.1, platelets 197, MCV 105, Na 138, K 4.7, BUN 28, Cr 1.8, glucose 119. Admitted for further care post-operatively. Past Medical History Cardiovascular: HTN, Hyperlipidemia CENTRAL NERVOUS SYSTEM: Migraine Renal/: Chronic renal insuff, Prostate Ca. Endocrine: Diabetes Past Surgical History Past Surgical History: Cholecystectomy, Other (Right BKA 2017) Family History Family History: Diabetes, High Cholestrol, Hypertension, Kidney Disease Social History 2 packs per day ALCOHOL: occassional Drugs: None Lives: Alone Domestic Violence: Neg Current Medications Current Medications Current Medications Heparin Sodium (Porcine) 5000 unit/Sodium Chloride 505 ml @ 505 mls/hr 1X ONCE IRR Last administered on 04/03/20at 11:32; Start 04/03/20 at 06:00; Stop 04/03/20 at 06:59; Status DC Cefazolin Sodium 1 gm/Sodium Chloride 500 ml @ 500 mls/hr 1X ONCE IRR ; Start 04/03/20 at 06:00; Stop 04/03/20 at 06:59; Status DC Ondansetron HCl (Zofran) 4 mg PRN Q6HRS PRN IV NAUSEA/VOMITING; Start 04/03/20 at 07:00; Stop 04/04/20 at 06:59 Fentanyl Citrate (Fentanyl 2ml Vial) 25 mcg PRN Q5MIN PRN IV MILD PAIN 1-3; Start 04/03/20 at 07:00; Stop 04/04/20 at 06:59 Fentanyl Citrate (Fentanyl 2ml Vial) 50 mcg PRN Q5MIN PRN IV MODERATE TO SEVERE PAIN Last administered on 04/03/20at 15:35; Start 04/03/20 at 07:00; Stop 04/04/20 at 06:59 Morphine Sulfate (Morphine Sulfate) 1 mg PRN Q10MIN PRN IV SEVERE PAIN 7-10 Last administered on 04/03/20at 14:54; Start 04/03/20 at 07:00; Stop 04/04/20 at 06:59 Ringer's Solution 1,000 ml @ 30 mls/hr Q24H IV Last administered on 04/03/20at 08:36; Start 04/03/20 at 07:00; Stop 04/03/20 at 18:59 Lidocaine HCl (Xylocaine-Mpf 1% 2ml Vial) 2 ml PRN 1X PRN ID PRIOR TO IV START; Start 04/03/20 at 07:00; Stop 04/04/20 at 06:59 Hydromorphone HCl (Dilaudid) 0.5 mg PRN Q10MIN PRN IV SEV PAIN, Second choice; Start 04/03/20 at 07:00; Stop 04/04/20 at 06:59 Prochlorperazine Edisylate (Compazine) 5 mg PACU PRN PRN IV NAUSEA, MRX1; Start 04/03/20 at 07:00; Stop 04/04/20 at 06:59 Cefazolin Sodium/ Dextrose 50 ml @ 100 mls/hr 1X PREOP PRN IV PRIOR TO PROCEDURE Last administered on 04/03/20at 10:25; Start 04/03/20 at 06:00; Stop 04/03/20 at 18:00 Insulin Human Lispro (HumaLOG VIAL for OP,RR ONLY) 0-10 units PRN Q1HR PRN SQ PER PROTOCOL Last administered on 04/03/20at 15:05; Start 04/03/20 at 08:30; Stop 04/04/20 at 08:29 Glycopyrrolate (Robinul) 1 mg STK-MED ONCE .ROUTE ; Start 04/03/20 at 08:46; Stop 04/03/20 at 08:47; Status DC Sevoflurane (Ultane) 90 ml STK-MED ONCE IH ; Start 04/03/20 at 08:46; Stop 04/03/20 at 08:47; Status DC Rocuronium [place] (Zemuron) 50 mg STK-MED ONCE .ROUTE ; Start 04/03/20 at 08:47; Stop 04/03/20 at 08:47; Status DC Fentanyl Citrate (Fentanyl 2ml Vial) 100 mcg STK-MED ONCE .ROUTE ; Start 04/03/20 at 08:47; Stop 04/03/20 at 08:47; Status DC Neostigmine [place] (Neostigmine Methylsulfate) 5 mg STK-MED ONCE .ROUTE ; Start 04/03/20 at 08:47; Stop 04/03/20 at 08:47; Status DC Midazolam HCl (Versed) 2 mg STK-MED ONCE .ROUTE ; Start 04/03/20 at 08:47; Stop 04/03/20 at 08:48; Status DC Propofol (Diprivan) 200 mg STK-MED ONCE IV ; Start 04/03/20 at 08:47; Stop 04/03/20 at 08:48; Status DC Lidocaine HCl (Lidocaine Pf 2% Vial) 5 ml STK-MED ONCE .ROUTE ; Start 04/03/20 at 08:47; Stop 04/03/20 at 08:48; Status DC Ondansetron HCl (Zofran) 4 mg STK-MED ONCE .ROUTE ; Start 04/03/20 at 08:48; Stop 04/03/20 at 08:48; Status DC Dexamethasone Sodium Phosphate (Decadron) 4 mg STK-MED ONCE .ROUTE ; Start 04/03/20 at 08:48; Stop 04/03/20 at 08:48; Status DC Iohexol (Omnipaque 300 Mg/ml) 50 ml STK-MED ONCE .ROUTE ; Start 04/03/20 at 09:22; Stop 04/03/20 at 09:23; Status DC Cellulose (Surgicel Fibrillar 1x2) 1 each STK-MED ONCE .ROUTE Last administered on 04/03/20at 13:10; Start 04/03/20 at 09:23; Stop 04/03/20 at 09:23; Status DC Bupivacaine HCl/ Epinephrine Bitart (Sensorcaine-Epi 0.25%-1:288211 Mpf) 30 ml STK-MED ONCE .ROUTE ; Start 04/03/20 at 10:33; Stop 04/03/20 at 10:34; Status DC Heparin Sodium (Porcine) (Heparin Sodium) 10,000 unit STK-MED ONCE .ROUTE ; Start 04/03/20 at 10:54; Stop 04/03/20 at 10:54; Status DC Bupivacaine HCl/ Epinephrine Bitart (Sensorcaine-Epi 0.25%-1:968087 Mpf) 30 ml STK-MED ONCE .ROUTE Last administered on 04/03/20at 11:38; Start 04/03/20 at 10:58; Stop 04/03/20 at 10:58; Status DC Protamine Sulfate (Protamine) 50 mg STK-MED ONCE IV ; Start 04/03/20 at 12:43; Stop 04/03/20 at 12:44; Status DC Fentanyl Citrate (Fentanyl 2ml Vial) 100 mcg STK-MED ONCE .ROUTE ; Start 04/03/20 at 13:17; Stop 04/03/20 at 13:18; Status DC Albuterol Sulfate (Ventolin Neb Soln) 2.5 mg PRN BID PRN NEB wheezing Last administered on 04/03/20at 15:08; Start 04/03/20 at 14:00 Aspirin (Aspirin Chewable) 81 mg DAILY PO ; Start 04/04/20 at 09:00 Acetaminophen/ Aspirin/Caffeine (Excedrin Migraine) 1 tab 1X PRN PO MIGRAINE HEADACHE; Start 04/03/20 at 14:00 Cetirizine HCl (ZyrTEC) 10 mg DAILY PO ; Start 04/04/20 at 09:00 Clopidogrel Bisulfate (Plavix) 75 mg DAILY PO ; Start 04/04/20 at 09:00 Gabapentin (Neurontin) 600 mg TID PO ; Start 04/03/20 at 21:00 Acetaminophen/ Hydrocodone Bitart (Lortab 7.5/325) 1 tab PRN Q8HRS PRN PO MODERATE PAIN; Start 04/03/20 at 14:00 Isosorbide Mononitrate (Imdur) 30 mg DAILY PO ; Start 04/04/20 at 09:00 Lisinopril (Prinivil) 5 mg DAILY PO ; Start 04/04/20 at 09:00 Nitroglycerin (Nitrostat) 0.4 mg PRN Q5MIN PRN SL CHEST PAIN; Start 04/03/20 at 14:00 Tamsulosin HCl (Flomax) 0.4 mg DAILY PO ; Start 04/04/20 at 09:00 Venlafaxine HCl (Effexor Xr) 75 mg DAILY PO ; Start 04/04/20 at 09:00 Non-Formulary Medication (Budesonide/ Formoterol Fumarate (Symbicort 160-4.5 Mcg Inhaler)) 2 puff BID IH ; Start 04/03/20 at 21:00; Status UNV Bupropion HCl (Wellbutrin Xl) 300 mg DAILY PO ; Start 04/04/20 at 09:00 Carvedilol (Coreg) 12.5 mg BIDWMEALS PO ; Start 04/03/20 at 17:00 Non-Formulary Medication (Insulin Aspart (Novolog Flexpen)) 10 unit PRN PRN SQ diabetes; Start 04/03/20 at 14:00; Status UNV Insulin Glargine (Lantus Syringe) 45 unit QHS SQ ; Start 04/03/20 at 21:00 Olanzapine (ZyPREXA) 7.5 mg DAILY PO ; Start 04/04/20 at 09:00 Pantoprazole Sodium (Protonix) 40 mg DAILYAC PO ; Start 04/04/20 at 07:30 Atorvastatin Calcium (Lipitor) 80 mg QHS PO ; Start 04/03/20 at 21:00 Torsemide (Demadex) 10 mg PRN DAILY PRN PO FLUID RETENTION; Start 04/04/20 at 09:00 Morphine Sulfate (Morphine Sulfate) 2 mg STK-MED ONCE .ROUTE ; Start 04/03/20 at 14:16; Stop 04/03/20 at 14:16; Status DC Fentanyl Citrate (Fentanyl 2ml Vial) 100 mcg STK-MED ONCE .ROUTE ; Start 04/03/20 at 14:37; Stop 04/03/20 at 14:37; Status DC Budesonide (Pulmicort) 0.5 mg RTBID NEB ; Start 04/03/20 at 20:00 Albuterol Sulfate (Ventolin Neb Soln) 2.5 mg Q6HRS NEB ; Start 04/03/20 at 18:00 Active Scripts Active Reported Aspirin 81 Mg Tab.chew 81 Mg PO DAILY Crestor (Rosuvastatin Calcium) 5 Mg Tablet 20 Mg PO HS Isosorbide Mononitrate 20 Mg Tablet 30 Mg PO DAILY Carvedilol 25 Mg Tablet 12.5 Mg PO BIDWMEALS Wellbutrin Sr (Bupropion Hcl) 200 Mg Tablet.er 300 Mg PO DAILY Effexor Xr (Venlafaxine Hcl) 37.5 Mg Cap.er.24h 75 Mg PO DAILY Torsemide 10 Mg Tablet 10 Mg PO PRN DAILY PRN Olanzapine 7.5 Mg Tablet 7.5 Mg PO DAILY NITROGLYCERIN SubLingual (Nitroglycerin) 0.4 Mg Tab.subl 0.4 Mg SL PRN Q5MIN PRN Reglan (Metoclopramide Hcl) 10 Mg Tablet 10 Mg PO QIDACHS Cetirizine Hcl 10 Mg Tablet 10 Mg PO DAILY Clopidogrel (Clopidogrel Bisulfate) 75 Mg Tablet 1 Tab PO DAILY Flomax (Tamsulosin Hcl) 0.4 Mg Cap.er.24h 0.4 Mg PO DAILY Omeprazole 40 Mg Capsule.dr 40 Mg PO DAILY Lisinopril 5 Mg Tablet 5 Mg PO DAILY Levemir (Insulin Detemir) 100 Unit/1 Ml Vial 45 Unit SQ HS Novolog Flexpen (Insulin Aspart) 100 Unit/1 Ml Insuln.pen 10 Unit SQ PRN PRN Hydrocodone-Apap 7.5-325 (Hydrocodone Bit/Acetaminophen) 1 Tab Tablet 1 Tab PO PRN Q8HRS PRN Gabapentin (Gabapentin) 300 Mg Capsule 600 Mg PO TID Vitamin D3 (Cholecalciferol (Vitamin D3)) 2,000 Unit Tab.chew 0.5 Tab PO DAILY 30 Days Symbicort 160-4.5 Mcg Inhaler (Budesonide/Formoterol Fumarate) 10.2 Gm Hfa.aer.ad 2 Puff IH BID Excedrin Migraine Caplet (Aspirin/Acetaminophen/Caffeine) 1 Each Tablet 1 Each PO PRN PRN Proair Hfa Inhaler (Albuterol Sulfate) 8.5 Gm Hfa.aer.ad 2 Puff IH PRN Q4-6HRS PRN 21 Days Allergies Allergies: Coded Allergies: I S O L A T I O N *CONTACT* (Verified Allergy, Unknown, 04/03/20) mrsa No Known Medication Allergies (Verified Allergy, Unknown, 04/03/20) ROS General: YES: Fatigue, Malaise; No: Chills, Night Sweats, Appetite, Other PSYCHOLOGICAL ROS: No: Anxiety, Behavioral Disorder, Concentration difficultie, Decreased libido, Depression, Disorientation, Hallucinations, Hostility, Irritablity, Memory difficulties, Mood Swings, Obsessive thoughts, Physical abuse, Sexual abuse, Sleep disturbances, Suicidal ideation, Other Eyes: No Blurry vision, No Decreased vision, No Double vision, No Dry eyes, No Excessive tearing, No Eye Pain, No Itchy Eyes, No Loss of vision, No Photophobia, No Scotomata, No Uses contacts, No Uses glasses, No Other HEENT: No: Heacaches, Visual Changes, Hearing change, Nasal congestion, Nasal discharge, Oral lesions, Sinus pain, Sore Throat, Epistaxis, Sneezing, Snoring, Tinnitus, Vertigo, Vocal changes, Other ALLERGY AND IMMUNOLOGY: No: Hives, Insect Bite Sensitivity, Itchy/Watery Eyes, Nasal Congestion, Post Nasal Drip, Seasonal Allergies, Other Hematological and Lymphatic: No: Bleeding Problems, Blood Clots, Blood Transfusions, Brusing, Night Sweats, Pallor, Swollen Lymph Nodes, Other ENDOCRINE: No: Breast Changes, Galactorrhea, Hair Pattern Changes, Hot Flashes, Malaise/lethargy, Mood Swings, Palpitations, Polydipsia/polyuria, Skin Changes, Temperature Intolerance, Unexpected Weight Changes, Other Breast: No New/Changing Breast Lumps, No Nipple changes, No Nipple discharge, No Other Respiratory: YES: Cough; No: Hemoptysis, Orthopnea, Pleuritic Pain, Shortness of breath, SOB with excertion, Sputum Changes, Stridor, Tachypnea, Wheezing, Other Cardiovascular: No Chest Pain, No Palpitations, No Orthopnea, No Paroxysmal Noc. Dyspnea, No Edema, No Lt Headedness, No Other Gastrointestinal: No Nausea, No Vomiting, No Abdominal Pain, No Diarrhea, No Constipation, No Melena, No Hematochezia, No Other Genitourinary: No Dysuria, No Frequency, No Incontinence, No Hematuria, No Retention, No Discharge, No Urgency, No Pain, No Flank Pain, No Other, No , No , No , No , No , No , No Musculoskeletal: Yes Gait Disturbance, Yes Muscular Weakness; No Joint Pain, No Joint Stiffness, No Joint Swelling, No Muscle Pain, No Pain In:, No Swelling In:, No Other Neurological: Yes Gait Disturbance; No Behavorial Changes, No Bowel/Bladder ControlChng, No Confusion, No Dizziness, No Headaches, No Impaired Coord/balance, No Memory Loss, No Numbness/Tingling, No Seizures, No Speech Problems, No Tremors, No Visual Changes, No Weakness, No Other Skin: Yes Rash, Yes Skin Lesion Changes; No Dry Skin, No Eczema, No Hair Changes, No Lumps, No Mole Changes, No Mottling, No Nail Changes, No Pruritus, No Other, No Acne Physical Exam General: Alert, Oriented X3, Cooperative, No acute distress HEENT: Atraumatic, PERRLA, EOMI, Mucous membr. moist/pink Lungs: Clear to auscultation, Normal air movement Heart: Regular rate, Normal S1, Normal S2, No murmurs Abdomen: Normal bowel sounds, Soft, No tenderness, No hepatosplenomegaly, No masses Extremities: No clubbing, No cyanosis, Normal pulses, Other (right stump dressed, no saturated) Skin: No rashes, No breakdown Neuro: Normal speech, Strength at 5/5 X4 ext, Normal tone, Sensation intact, Cranial nerves 3-12 NL, Reflexes 2+ Psych/Mental Status: Mental status NL, Mood NL MUSCULOSKELETAL: No joint tenderness, Abnormal exam of right Vitals VITALS Vital Signs Date Time Temp Pulse Resp B/P (MAP) Pulse Ox O2 Delivery O2 Flow Rate FiO2 04/03/20 16:03 98.2 91 18 150/82 (104) 92 Nasal Cannula 3.0 98.2 Labs Labs Laboratory Tests Test 04/03/20 08:31 04/03/20 08:32 04/03/20 15:01 04/03/20 16:37 Glucose (Fingerstick) 115 mg/dL (70-99) 164 mg/dL (70-99) 150 mg/dL (70-99) White Blood Count 13.6 x10^3/uL (4.0-11.0) Red Blood Count 4.09 x10^6/uL (4.30-5.70) Hemoglobin 14.1 g/dL (13.0-17.5) Hematocrit 43.0 % (39.0-53.0) Mean Corpuscular Volume 105 fL (79-100) Mean Corpuscular Hemoglobin 35 pg (25-35) Mean Corpuscular Hemoglobin Concent 33 g/dL (31-37) Red Cell Distribution Width 17.3 % (11.5-14.5) Platelet Count 197 x10^3/uL (140-400) Neutrophils (%) (Auto) 80 % (31-73) Lymphocytes (%) (Auto) 11 % (24-48) Monocytes (%) (Auto) 6 % (0-9) Eosinophils (%) (Auto) 2 % (0-3) Basophils (%) (Auto) 1 % (0-3) Neutrophils # (Auto) 10.9 x10^3/uL (1.8-7.7) Lymphocytes # (Auto) 1.5 x10^3/uL (1.0-4.8) Monocytes # (Auto) 0.8 x10^3/uL (0.0-1.1) Eosinophils # (Auto) 0.2 x10^3/uL (0.0-0.7) Basophils # (Auto) 0.1 x10^3/uL (0.0-0.2) Sodium Level 138 mmol/L (136-145) Potassium Level 4.7 mmol/L (3.5-5.1) Chloride Level 103 mmol/L (98-107) Carbon Dioxide Level 24 mmol/L (21-32) Anion Gap 11 (6-14) Blood Urea Nitrogen 28 mg/dL (8-26) Creatinine 1.8 mg/dL (0.7-1.3) Estimated GFR (Cockcroft-Gault) 39.4 Glucose Level 119 mg/dL (70-99) Calcium Level 9.1 mg/dL (8.5-10.1) Laboratory Tests Test 04/03/20 08:31 04/03/20 08:32 04/03/20 15:01 04/03/20 16:37 Glucose (Fingerstick) 115 mg/dL (70-99) 164 mg/dL (70-99) 150 mg/dL (70-99) White Blood Count 13.6 x10^3/uL (4.0-11.0) Red Blood Count 4.09 x10^6/uL (4.30-5.70) Hemoglobin 14.1 g/dL (13.0-17.5) Hematocrit 43.0 % (39.0-53.0) Mean Corpuscular Volume 105 fL (79-100) Mean Corpuscular Hemoglobin 35 pg (25-35) Mean Corpuscular Hemoglobin Concent 33 g/dL (31-37) Red Cell Distribution Width 17.3 % (11.5-14.5) Platelet Count 197 x10^3/uL (140-400) Neutrophils (%) (Auto) 80 % (31-73) Lymphocytes (%) (Auto) 11 % (24-48) Monocytes (%) (Auto) 6 % (0-9) Eosinophils (%) (Auto) 2 % (0-3) Basophils (%) (Auto) 1 % (0-3) Neutrophils # (Auto) 10.9 x10^3/uL (1.8-7.7) Lymphocytes # (Auto) 1.5 x10^3/uL (1.0-4.8) Monocytes # (Auto) 0.8 x10^3/uL (0.0-1.1) Eosinophils # (Auto) 0.2 x10^3/uL (0.0-0.7) Basophils # (Auto) 0.1 x10^3/uL (0.0-0.2) Sodium Level 138 mmol/L (136-145) Potassium Level 4.7 mmol/L (3.5-5.1) Chloride Level 103 mmol/L (98-107) Carbon Dioxide Level 24 mmol/L (21-32) Anion Gap 11 (6-14) Blood Urea Nitrogen 28 mg/dL (8-26) Creatinine 1.8 mg/dL (0.7-1.3) Estimated GFR (Cockcroft-Gault) 39.4 Glucose Level 119 mg/dL (70-99) Calcium Level 9.1 mg/dL (8.5-10.1) Assessment/Plan Assessment/Plan A/P: BKA stump wound - s/p surgical debridement and revascularization with right iliofemoral and profundofemoral endarterectomy. Wound nurse to see for dressing changes. IS bedside. Pain control Heavy smoker (36 cigarettes per day) - counseled on cessation. He is down from 3 packs per day CAD - cont meds, coreg, ASA, plavix, Imdur Depression - cont wellbutrin, zyprexa HLD - cont statin Prior CVA - cont statin, antiplatelet agents, BP and glycemic control Diabetes mellitus - will place on basal bolus plus insulin regimen CKD - Cr 1.8, will monitor post-op renal function Severe PAD s/p below-knee amputation on the right in 2017 - s/p right iliofemoral and profundofemoral endarterectomy and some debridement 04/03/2020 Leukocytosis - will monitor, no clear sign of infection, given perioperative antibiotics Macrocytosis, RBC - check B12, counseled on minimizing alcohol use FEN - ADA diet PPX - Ambulatory, wait 24 hours after arterial manipulation for heparin products FULL CODE Dispo - inpatient for post op medical care Thank you for consulting [facility], we will continue to follow and can manage primarily now that definitive surgical treatment has been achieved for questions, assistance. PEDRO KUMAR MD Apr 03, 2020 17:04
[2020-04-03] MEDS: ALBUTEROL SULFATE 2.5 MG/3 ML NEBU. NEB SCH (18:00)
[2020-04-03] MEDS: NICOTINE 21MG PATCH. TD SCH (18:21)
[2020-04-03] MEDS: CARVEDILOL 12.5 MG TABLET. PO SCH (18:22)
[2020-04-03] MEDS: HYDROcodone/APAP 7.5/325MG 1 TAB TABLET PO PRN (18:24)
--- NOTE | 2020-04-03 18:51 | NUR ---
Nursing: Patient bedrest. Patient demanding assistance getting up to go to the bathroom. Bedpan offered. Patient refused and said he's getting up with or without my help. Patient assisted to wheelchair and bathroom.
[2020-04-03] MEDS: BUDESONIDE 0.5 MG/2 ML NEBU. NEB SCH (20:00)
[2020-04-03] MEDS ORDERED: INSULIN GLARGINE SYRINGE. SQ SCH (21:00)
[2020-04-03] MEDS ORDERED: NON FORMULARY ITEM (Budesonide/Formoterol Fumarate (Symbicort 160-4.5 Mcg Inhaler) 2 PUFF) IH SCH (21:00)
[2020-04-03] MEDS ORDERED: ATORVASTATIN CALCIUM 40 MG TABLET. PO SCH (21:00)
[2020-04-03] MEDS: GABAPENTIN 300 MG CAPSULE. PO SCH (22:07)
[2020-04-03] MEDS: INSULIN LISPRO 300 UNITS/3 ML VIAL. SQ SCH (22:20)
[2020-04-04] MEDS: HYDROcodone/APAP 7.5/325MG 1 TAB TABLET PO PRN ×2 (02:55→11:35)
[2020-04-04 03:00] VITALS: BP 130/79
[2020-04-04 04:45] LABS: BASO % 0 % (0-3); EOS % 0 % (0-3); HEMATOCRIT 40.6 % (39.0-53.0); LYMPH # 1.4 x10^3/uL (1.0-4.8); LYMPH % 10 % (24-48); MEAN CORPUSCULAR HEMOGLOBIN 34 pg (25-35); MEAN CORPUSCULAR HGB CONC 32 g/dL (31-37); MEAN CORPUSCULAR VOLUME 106 fL (79-100); MONO # 1.1 x10^3/uL (0.0-1.1); MONO % 7 % (0-9); NEUT # 11.9 x10^3/uL (1.8-7.7); NEUT % 83 % (31-73); PLATELET COUNT 180 x10^3/uL (140-400); RED BLOOD COUNT 3.82 x10^6/uL (4.30-5.70); RED CELL DISTRIBUTION WIDTH 17.7 % (11.5-14.5); WHITE BLOOD COUNT 14.4 x10^3/uL (4.0-11.0)
[2020-04-04 04:57] LABS: ALBUMIN 2.6 g/dL (3.4-5.0); ALBUMIN/GLOBULIN RATIO 0.6 (1.0-1.7); CALCIUM 7.7 mg/dL (8.5-10.1); CREATININE 1.5 mg/dL (0.7-1.3); GFR 48.6; POTASSIUM 4.4 mmol/L (3.5-5.1); TOTAL BILIRUBIN 0.2 mg/dL (0.2-1.0); TOTAL PROTEIN 6.7 g/dL (6.4-8.2)
[2020-04-04] MEDS: ALBUTEROL SULFATE 2.5 MG/3 ML NEBU. NEB SCH ×3 (06:00→12:00)
[2020-04-04 07:00] VITALS: BP 152/83
--- NOTE | 2020-04-04 07:07 | NUR ---
IP: Pt is mrsa + in R stump wounds requiring contact precautions.
[2020-04-04] MEDS ORDERED: PANTOPRAZOLE 40 MG TABLET.DR. PO SCH (07:30)
[2020-04-04] MEDS: BUDESONIDE 0.5 MG/2 ML NEBU. NEB SCH (08:00)
[2020-04-04] MEDS: GABAPENTIN 300 MG CAPSULE. PO SCH (08:27)
[2020-04-04] MEDS: CARVEDILOL 12.5 MG TABLET. PO SCH (08:27)
[2020-04-04] MEDS: NICOTINE 21MG PATCH. TD SCH (08:27)
--- NOTE | 2020-04-04 08:31 | PDOC ---
PROGRESS NOTES Subjective Subjective Patient seen and examined in room, no complaints. States he wants to go home. Objective Objective Vital Signs Date Time Temp Pulse Resp B/P (MAP) Pulse Ox O2 Delivery O2 Flow Rate FiO2 04/04/20 08:09 94 Room Air 04/04/20 03:55 18 3.0 04/04/20 03:00 97.8 80 130/79 (96) 97.8 Intake and Output 04/04/20 07:00 Intake Total 1710 ml Output Total 1700 ml Balance 10 ml Intake Oral 60 ml IV Total 1650 ml Output Urine Total 1650 ml Estimated Blood Loss 50 ml Physical Exam Physical Exam Awake and alert Right groin Prevena vac in place and functioning Right BKA wounds clean, pink. Plan Plan of Care Right femoral stenosis, BKA stump ulcers POD #1 Right femoral endarterectomy, BKA stump ulcer debridement Recommend WC see patient and make recommendations, wound vac in possible. Discontinue indwelling catheter. Possibly home today. Comment Review of Relevant I have reviewed the following items aristides (where applicable) has been applied. Labs Laboratory Tests Test 04/03/20 08:31 04/03/20 08:32 04/03/20 15:01 04/03/20 16:37 Glucose (Fingerstick) 115 mg/dL (70-99) 164 mg/dL (70-99) 150 mg/dL (70-99) White Blood Count 13.6 x10^3/uL (4.0-11.0) Red Blood Count 4.09 x10^6/uL (4.30-5.70) Hemoglobin 14.1 g/dL (13.0-17.5) Hematocrit 43.0 % (39.0-53.0) Mean Corpuscular Volume 105 fL (79-100) Mean Corpuscular Hemoglobin 35 pg (25-35) Mean Corpuscular Hemoglobin Concent 33 g/dL (31-37) Red Cell Distribution Width 17.3 % (11.5-14.5) Platelet Count 197 x10^3/uL (140-400) Neutrophils (%) (Auto) 80 % (31-73) Lymphocytes (%) (Auto) 11 % (24-48) Monocytes (%) (Auto) 6 % (0-9) Eosinophils (%) (Auto) 2 % (0-3) Basophils (%) (Auto) 1 % (0-3) Neutrophils # (Auto) 10.9 x10^3/uL (1.8-7.7) Lymphocytes # (Auto) 1.5 x10^3/uL (1.0-4.8) Monocytes # (Auto) 0.8 x10^3/uL (0.0-1.1) Eosinophils # (Auto) 0.2 x10^3/uL (0.0-0.7) Basophils # (Auto) 0.1 x10^3/uL (0.0-0.2) Sodium Level 138 mmol/L (136-145) Potassium Level 4.7 mmol/L (3.5-5.1) Chloride Level 103 mmol/L (98-107) Carbon Dioxide Level 24 mmol/L (21-32) Anion Gap 11 (6-14) Blood Urea Nitrogen 28 mg/dL (8-26) Creatinine 1.8 mg/dL (0.7-1.3) Estimated GFR (Cockcroft-Gault) 39.4 Glucose Level 119 mg/dL (70-99) Calcium Level 9.1 mg/dL (8.5-10.1) Test 04/03/20 20:44 04/04/20 04:15 04/04/20 08:00 Glucose (Fingerstick) 272 mg/dL (70-99) 256 mg/dL (70-99) White Blood Count 14.4 x10^3/uL (4.0-11.0) Red Blood Count 3.82 x10^6/uL (4.30-5.70) Hemoglobin 13.0 g/dL (13.0-17.5) Hematocrit 40.6 % (39.0-53.0) Mean Corpuscular Volume 106 fL (79-100) Mean Corpuscular Hemoglobin 34 pg (25-35) Mean Corpuscular Hemoglobin Concent 32 g/dL (31-37) Red Cell Distribution Width 17.7 % (11.5-14.5) Platelet Count 180 x10^3/uL (140-400) Neutrophils (%) (Auto) 83 % (31-73) Lymphocytes (%) (Auto) 10 % (24-48) Monocytes (%) (Auto) 7 % (0-9) Eosinophils (%) (Auto) 0 % (0-3) Basophils (%) (Auto) 0 % (0-3) Neutrophils # (Auto) 11.9 x10^3/uL (1.8-7.7) Lymphocytes # (Auto) 1.4 x10^3/uL (1.0-4.8) Monocytes # (Auto) 1.1 x10^3/uL (0.0-1.1) Eosinophils # (Auto) 0.0 x10^3/uL (0.0-0.7) Basophils # (Auto) 0.0 x10^3/uL (0.0-0.2) Sodium Level 136 mmol/L (136-145) Potassium Level 4.4 mmol/L (3.5-5.1) Chloride Level 102 mmol/L (98-107) Carbon Dioxide Level 25 mmol/L (21-32) Anion Gap 9 (6-14) Blood Urea Nitrogen 22 mg/dL (8-26) Creatinine 1.5 mg/dL (0.7-1.3) Estimated GFR (Cockcroft-Gault) 48.6 BUN/Creatinine Ratio 15 (6-20) Glucose Level 232 mg/dL (70-99) Calcium Level 7.7 mg/dL (8.5-10.1) Total Bilirubin 0.2 mg/dL (0.2-1.0) Aspartate Amino Transf (AST/SGOT) 12 U/L (15-37) Alanine Aminotransferase (ALT/SGPT) 11 U/L (16-63) Alkaline Phosphatase 124 U/L (46-116) Total Protein 6.7 g/dL (6.4-8.2) Albumin 2.6 g/dL (3.4-5.0) Albumin/Globulin Ratio 0.6 (1.0-1.7) Laboratory Tests Test 04/03/20 08:31 04/03/20 08:32 04/03/20 15:01 04/03/20 16:37 Glucose (Fingerstick) 115 mg/dL (70-99) 164 mg/dL (70-99) 150 mg/dL (70-99) White Blood Count 13.6 x10^3/uL (4.0-11.0) Red Blood Count 4.09 x10^6/uL (4.30-5.70) Hemoglobin 14.1 g/dL (13.0-17.5) Hematocrit 43.0 % (39.0-53.0) Mean Corpuscular Volume 105 fL (79-100) Mean Corpuscular Hemoglobin 35 pg (25-35) Mean Corpuscular Hemoglobin Concent 33 g/dL (31-37) Red Cell Distribution Width 17.3 % (11.5-14.5) Platelet Count 197 x10^3/uL (140-400) Neutrophils (%) (Auto) 80 % (31-73) Lymphocytes (%) (Auto) 11 % (24-48) Monocytes (%) (Auto) 6 % (0-9) Eosinophils (%) (Auto) 2 % (0-3) Basophils (%) (Auto) 1 % (0-3) Neutrophils # (Auto) 10.9 x10^3/uL (1.8-7.7) Lymphocytes # (Auto) 1.5 x10^3/uL (1.0-4.8) Monocytes # (Auto) 0.8 x10^3/uL (0.0-1.1) Eosinophils # (Auto) 0.2 x10^3/uL (0.0-0.7) Basophils # (Auto) 0.1 x10^3/uL (0.0-0.2) Sodium Level 138 mmol/L (136-145) Potassium Level 4.7 mmol/L (3.5-5.1) Chloride Level 103 mmol/L (98-107) Carbon Dioxide Level 24 mmol/L (21-32) Anion Gap 11 (6-14) Blood Urea Nitrogen 28 mg/dL (8-26) Creatinine 1.8 mg/dL (0.7-1.3) Estimated GFR (Cockcroft-Gault) 39.4 Glucose Level 119 mg/dL (70-99) Calcium Level 9.1 mg/dL (8.5-10.1) Test 04/03/20 20:44 04/04/20 04:15 04/04/20 08:00 Glucose (Fingerstick) 272 mg/dL (70-99) 256 mg/dL (70-99) White Blood Count 14.4 x10^3/uL (4.0-11.0) Red Blood Count 3.82 x10^6/uL (4.30-5.70) Hemoglobin 13.0 g/dL (13.0-17.5) Hematocrit 40.6 % (39.0-53.0) Mean Corpuscular Volume 106 fL (79-100) Mean Corpuscular Hemoglobin 34 pg (25-35) Mean Corpuscular Hemoglobin Concent 32 g/dL (31-37) Red Cell Distribution Width 17.7 % (11.5-14.5) Platelet Count 180 x10^3/uL (140-400) Neutrophils (%) (Auto) 83 % (31-73) Lymphocytes (%) (Auto) 10 % (24-48) Monocytes (%) (Auto) 7 % (0-9) Eosinophils (%) (Auto) 0 % (0-3) Basophils (%) (Auto) 0 % (0-3) Neutrophils # (Auto) 11.9 x10^3/uL (1.8-7.7) Lymphocytes # (Auto) 1.4 x10^3/uL (1.0-4.8) Monocytes # (Auto) 1.1 x10^3/uL (0.0-1.1) Eosinophils # (Auto) 0.0 x10^3/uL (0.0-0.7) Basophils # (Auto) 0.0 x10^3/uL (0.0-0.2) Sodium Level 136 mmol/L (136-145) Potassium Level 4.4 mmol/L (3.5-5.1) Chloride Level 102 mmol/L (98-107) Carbon Dioxide Level 25 mmol/L (21-32) Anion Gap 9 (6-14) Blood Urea Nitrogen 22 mg/dL (8-26) Creatinine 1.5 mg/dL (0.7-1.3) Estimated GFR (Cockcroft-Gault) 48.6 BUN/Creatinine Ratio 15 (6-20) Glucose Level 232 mg/dL (70-99) Calcium Level 7.7 mg/dL (8.5-10.1) Total Bilirubin 0.2 mg/dL (0.2-1.0) Aspartate Amino Transf (AST/SGOT) 12 U/L (15-37) Alanine Aminotransferase (ALT/SGPT) 11 U/L (16-63) Alkaline Phosphatase 124 U/L (46-116) Total Protein 6.7 g/dL (6.4-8.2) Albumin 2.6 g/dL (3.4-5.0) Albumin/Globulin Ratio 0.6 (1.0-1.7) Medications Current Medications Heparin Sodium (Porcine) 5000 unit/Sodium Chloride 505 ml @ 505 mls/hr 1X ONCE IRR Last administered on 04/03/20at 11:32; Start 04/03/20 at 06:00; Stop 04/03/20 at 06:59; Status DC Cefazolin Sodium 1 gm/Sodium Chloride 500 ml @ 500 mls/hr 1X ONCE IRR ; Start 04/03/20 at 06:00; Stop 04/03/20 at 06:59; Status DC Ondansetron HCl (Zofran) 4 mg PRN Q6HRS PRN IV NAUSEA/VOMITING; Start 04/03/20 at 07:00; Stop 04/04/20 at 06:59; Status DC Fentanyl Citrate (Fentanyl 2ml Vial) 25 mcg PRN Q5MIN PRN IV MILD PAIN 1-3; Start 04/03/20 at 07:00; Stop 04/04/20 at 06:59; Status DC Fentanyl Citrate (Fentanyl 2ml Vial) 50 mcg PRN Q5MIN PRN IV MODERATE TO SEVERE PAIN Last administered on 04/03/20at 15:35; Start 04/03/20 at 07:00; Stop 03/13 12/30 at 06:59; Status DC Morphine Sulfate (Morphine Sulfate) 1 mg PRN Q10MIN PRN IV SEVERE PAIN 7-10 Last administered on 04/03/20at 14:54; Start 04/03/20 at 07:00; Stop 04/04/20 at 06:59; Status DC Ringer's Solution 1,000 ml @ 30 mls/hr Q24H IV Last administered on 04/03/20at 08:36; Start 04/03/20 at 07:00; Stop 04/03/20 at 18:59; Status DC Lidocaine HCl (Xylocaine-Mpf 1% 2ml Vial) 2 ml PRN 1X PRN ID PRIOR TO IV START; Start 04/03/20 at 07:00; Stop 04/04/20 at 06:59; Status DC Hydromorphone HCl (Dilaudid) 0.5 mg PRN Q10MIN PRN IV SEV PAIN, Second choice; Start 04/03/20 at 07:00; Stop 04/04/20 at 06:59; Status DC Prochlorperazine Edisylate (Compazine) 5 mg PACU PRN PRN IV NAUSEA, MRX1; Start 04/03/20 at 07:00; Stop 04/04/20 at 06:59; Status DC Cefazolin Sodium/ Dextrose 50 ml @ 100 mls/hr 1X PREOP PRN IV PRIOR TO PROCEDURE Last administered on 04/03/20at 10:25; Start 04/03/20 at 06:00; Stop 04/03/20 at 18:00; Status DC Insulin Human Lispro (HumaLOG VIAL for OP,RR ONLY) 0-10 units PRN Q1HR PRN SQ PER PROTOCOL Last administered on 04/03/20at 15:05; Start 04/03/20 at 08:30; Stop 04/04/20 at 08:29 Glycopyrrolate (Robinul) 1 mg STK-MED ONCE .ROUTE ; Start 04/03/20 at 08:46; Stop 04/03/20 at 08:47; Status DC Sevoflurane (Ultane) 90 ml STK-MED ONCE IH ; Start 04/03/20 at 08:46; Stop 04/03/20 at 08:47; Status DC Rocuronium [place] (Zemuron) 50 mg STK-MED ONCE .ROUTE ; Start 04/03/20 at 08:47; Stop 04/03/20 at 08:47; Status DC Fentanyl Citrate (Fentanyl 2ml Vial) 100 mcg STK-MED ONCE .ROUTE ; Start at 08:47; Stop 04/03/20 at 08:47; Status DC Neostigmine [place] (Neostigmine Methylsulfate) 5 mg STK-MED ONCE .ROUTE ; Star t 04/03/20 at 08:47; Stop 04/03/20 at 08:47; Status DC Midazolam HCl (Versed) 2 mg STK-MED ONCE .ROUTE ; Start 04/03/20 at 08:47; Stop 04/03/20 at 08:48; Status DC Propofol (Diprivan) 200 mg STK-MED ONCE IV ; Start 04/03/20 at 08:47; Stop 04/03/20 at 08:48; Status DC Lidocaine HCl (Lidocaine Pf 2% Vial) 5 ml STK-MED ONCE .ROUTE ; Start 04/03/20 at 08:47; Stop 04/03/20 at 08:48; Status DC Ondansetron HCl (Zofran) 4 mg STK-MED ONCE .ROUTE ; Start 04/03/20 at 08:48; Stop 04/03/20 at 08:48; Status DC Dexamethasone Sodium Phosphate (Decadron) 4 mg STK-MED ONCE .ROUTE ; Start 04/03/20 at 08:48; Stop 04/03/20 at 08:48; Status DC Iohexol (Omnipaque 300 Mg/ml) 50 ml STK-MED ONCE .ROUTE ; Start 04/03/20 at 09:22; Stop 04/03/20 at 09:23; Status DC Cellulose (Surgicel Fibrillar 1x2) 1 each STK-MED ONCE .ROUTE Last administered on 04/03/20at 13:10; Start 04/03/20 at 09:23; Stop 04/03/20 at 09:23; Status DC Bupivacaine HCl/ Epinephrine Bitart (Sensorcaine-Epi 0.25%-1:043692 Mpf) 30 ml STK-MED ONCE .ROUTE ; Start 04/03/20 at 10:33; Stop 04/03/20 at 10:34; Status DC Heparin Sodium (Porcine) (Heparin Sodium) 10,000 unit STK-MED ONCE .ROUTE ; Start 04/03/20 at 10:54; Stop 04/03/20 at 10:54; Status DC Bupivacaine HCl/ Epinephrine Bitart (Sensorcaine-Epi 0.25%-1:[id number] Mpf) 30 ml STK-MED ONCE .ROUTE Last administered on 04/03/20at 11:38; Start 04/03/20 at 10:58; Stop 04/03/20 at 10:58; Status DC Protamine Sulfate (Protamine) 50 mg STK-MED ONCE IV ; Start 04/03/20 at 12:43; Stop 04/03/20 at 12:44; Status DC Fentanyl Citrate (Fentanyl 2ml Vial) 100 mcg STK-MED ONCE .ROUTE ; Start 04/03/20 at 13:17; Stop 04/03/20 at 13:18; Status DC Albuterol Sulfate (Ventolin Neb Soln) 2.5 mg PRN BID PRN NEB wheezing Last administered on 04/03/20at 15:08; Start 04/03/20 at 14:00 Aspirin (Aspirin Chewable) 81 mg DAILY PO ; Start 04/04/20 at 09:00 Acetaminophen/ Aspirin/Caffeine (Excedrin Migraine) 1 tab 1X PRN PO MIGRAINE HEADACHE; Start 04/03/20 at 14:00 Cetirizine HCl (ZyrTEC) 10 mg DAILY PO ; Start 04/04/20 at 09:00 Clopidogrel Bisulfate (Plavix) 75 mg DAILY PO ; Start 04/04/20 at 09:00 Gabapentin (Neurontin) 600 mg TID PO Last administered on 04/03/20at 22:07; Start 04/03/20 at 21:00 Acetaminophen/ Hydrocodone Bitart (Lortab 7.5/325) 1 tab PRN Q8HRS PRN PO MODERATE PAIN Last administered on 04/04/20at 02:55; Start 04/03/20 at 14:00 Isosorbide Mononitrate (Imdur) 30 mg DAILY PO ; Start 04/04/20 at 09:00 Lisinopril (Prinivil) 5 mg DAILY PO ; Start 04/04/20 at 09:00 Nitroglycerin (Nitrostat) 0.4 mg PRN Q5MIN PRN SL CHEST PAIN; Start 04/03/20 at 14:00 Tamsulosin HCl (Flomax) 0.4 mg DAILY PO ; Start 04/04/20 at 09:00 Venlafaxine HCl (Effexor Xr) 75 mg DAILY PO ; Start 04/04/20 at 09:00 Non-Formulary Medication (Budesonide/ Formoterol Fumarate (Symbicort 160-4.5 Mcg Inhaler)) 2 puff BID IH ; Start 04/03/20 at 21:00; Status UNV Bupropion HCl (Wellbutrin Xl) 300 mg DAILY PO ; Start 04/04/20 at 09:00 Carvedilol (Coreg) 12.5 mg BIDWMEALS PO Last administered on 04/03/20at 18:22; Start 04/03/20 at 17:00 Non-Formulary Medication (Insulin Aspart (Novolog Flexpen)) 10 unit PRN PRN SQ diabetes; Start 04/03/20 at 14:00; Status UNV Insulin Glargine (Lantus Syringe) 45 unit QHS SQ Last administered on 04/03/20at 22:15; Start 04/03/20 at 21:00 Olanzapine (ZyPREXA) 7.5 mg DAILY PO ; Start 04/04/20 at 09:00 Pantoprazole Sodium (Protonix) 40 mg DAILYAC PO ; Start 04/04/20 at 07:30 Atorvastatin Calcium (Lipitor) 80 mg QHS PO Last administered on 04/03/20at 22:07; Start 04/03/20 at 21:00 Torsemide (Demadex) 10 mg PRN DAILY PRN PO FLUID RETENTION; Start 04/04/20 at 09:00 Morphine Sulfate (Morphine Sulfate) 2 mg STK-MED ONCE .ROUTE ; Start 04/03/20 at 14:16; Stop 04/03/20 at 14:16; Status DC Fentanyl Citrate (Fentanyl 2ml Vial) 100 mcg STK-MED ONCE .ROUTE ; Start 04/03/20 at 14:37; Stop 04/03/20 at 14:37; Status DC Budesonide (Pulmicort) 0.5 mg RTBID NEB ; Start 04/03/20 at 20:00 Albuterol Sulfate (Ventolin Neb Soln) 2.5 mg Q6HRS NEB ; Start 04/03/20 at 18:00 Nicotine (Nicoderm Cq 21mg) 1 patch DAILY TD Last administered on 04/03/20at 18:21; Start 04/03/20 at 17:00 Insulin Human Lispro (HumaLOG) 0-9 UNITS TIDACHC SQ Last administered on 04/03/20at 22:20; Start 04/03/20 at 21:00 Dextrose (Dextrose 50%-Water Syringe) 12.5 gm PRN Q15MIN PRN IV SEE COMMENTS; Start 04/03/20 at 17:00 Active Scripts Active Reported Aspirin 81 Mg Tab.chew 81 Mg PO DAILY Crestor (Rosuvastatin Calcium) 5 Mg Tablet 20 Mg PO HS Isosorbide Mononitrate 20 Mg Tablet 30 Mg PO DAILY Carvedilol 25 Mg Tablet 12.5 Mg PO BIDWMEALS Wellbutrin Sr (Bupropion Hcl) 200 Mg Tablet.er 300 Mg PO DAILY Effexor Xr (Venlafaxine Hcl) 37.5 Mg Cap.er.24h 75 Mg PO DAILY Torsemide 10 Mg Tablet 10 Mg PO PRN DAILY PRN Olanzapine 7.5 Mg Tablet 7.5 Mg PO DAILY NITROGLYCERIN SubLingual (Nitroglycerin) 0.4 Mg Tab.subl 0.4 Mg SL PRN Q5MIN PRN Reglan (Metoclopramide Hcl) 10 Mg Tablet 10 Mg PO QIDACHS Cetirizine Hcl 10 Mg Tablet 10 Mg PO DAILY Clopidogrel (Clopidogrel Bisulfate) 75 Mg Tablet 1 Tab PO DAILY Flomax (Tamsulosin Hcl) 0.4 Mg Cap.er.24h 0.4 Mg PO DAILY Omeprazole 40 Mg Capsule.dr 40 Mg PO DAILY Lisinopril 5 Mg Tablet 5 Mg PO DAILY Levemir (Insulin Detemir) 100 Unit/1 Ml Vial 45 Unit SQ HS Novolog Flexpen (Insulin Aspart) 100 Unit/1 Ml Insuln.pen 10 Unit SQ PRN PRN Hydrocodone-Apap 7.5-325 (Hydrocodone Bit/Acetaminophen) 1 Tab Tablet 1 Tab PO PRN Q8HRS PRN Gabapentin (Gabapentin) 300 Mg Capsule 600 Mg PO TID Vitamin D3 (Cholecalciferol (Vitamin D3)) 2,000 Unit Tab.chew 0.5 Tab PO DAILY 30 Days Symbicort 160-4.5 Mcg Inhaler (Budesonide/Formoterol Fumarate) 10.2 Gm Hfa.aer.ad 2 Puff IH BID Excedrin Migraine Caplet (Aspirin/Acetaminophen/Caffeine) 1 Each Tablet 1 Each PO PRN PRN Proair Hfa Inhaler (Albuterol Sulfate) 8.5 Gm Hfa.aer.ad 2 Puff IH PRN Q4-6HRS PRN 21 Days Vitals/I & O Vital Sign - Last 24 Hours 04/03/20 04/03/20 04/03/20 04/03/20 13:49 13:49 14:03 14:18 Temp 97.4 97.4 Pulse 91 91 95 Resp B/P (MAP) 165/75 176/84 174/82 Pulse Ox 93 93 92 O2 Delivery Mask Simple Mask Simple Mask Simple Mask O2 Flow Rate 10 10 10 10 04/03/20 04/03/20 04/03/20 04/03/20 14:25 14:33 14:48 14:53 Pulse 84 92 Resp 20 B/P (MAP) 160/98 155/79 Pulse Ox 92 86 88 85 O2 Delivery Simple Mask Nasal Cannula Room Air Nasal Cannula O2 Flow Rate 10.0 2 2.0 04/03/20 04/03/20 04/03/20 04/03/20 14:54 15:03 15:10 15:18 Pulse 86 88 Resp 20 20 20 B/P (MAP) 157/87 157/87 Pulse Ox 90 97 97 O2 Delivery Nasal Cannula Nasal Cannula Nasal Cannula Nasal Cannula O2 Flow Rate 2.0 2 2.0 2 04/03/20 04/03/20 04/03/20 04/03/20 15:33 15:35 15:40 16:03 Temp 97.0 98.2 97.0 98.2 Pulse 96 91 Resp 20 20 18 B/P (MAP) 155/81 150/82 (104) Pulse Ox 93 96 92 O2 Delivery Nasal Cannula Nasal Cannula Nasal Cannula Nasal Cannula O2 Flow Rate 2 2.0 2 3.0 04/03/20 04/03/20 04/03/20 04/03/20 16:15 16:30 16:45 16:50 Pulse 98 106 90 B/P (MAP) 143/78 (99) 142/76 (98) 147/80 (102) O2 Delivery Nasal Cannula O2 Flow Rate 3.0 04/03/20 04/03/20 04/03/20 04/03/20 17:00 17:30 18:00 18:22 Pulse 87 113 101 97 B/P (MAP) 132/76 (94) 163/79 (107) 149/72 (97) 04/03/20 04/03/20 04/03/20 04/03/20 18:30 19:00 19:24 19:30 Pulse 96 91 85 Resp 18 B/P (MAP) 143/67 (92) 137/63 (87) 143/65 (91) Pulse Ox 92 O2 Delivery Nasal Cannula O2 Flow Rate 3.0 04/03/20 04/03/20 04/04/20 04/04/20 20:17 23:00 02:55 03:00 Temp 97.9 97.8 97.9 97.8 Pulse 85 80 Resp 18 18 B/P (MAP) 140/83 (102) 130/79 (96) Pulse Ox 95 95 95 O2 Delivery Nasal Cannula Nasal Cannula Nasal Cannula Room Air O2 Flow Rate 3.0 3.0 3.0 04/04/20 04/04/20 03:55 08:09 Resp 18 Pulse Ox 95 94 O2 Delivery Nasal Cannula Room Air O2 Flow Rate 3.0 Intake and Output 04/03/20 04/03/20 04/04/20 15:00 23:00 07:00 Intake Total 1550 ml 160 ml Output Total 400 ml 1300 ml Balance 1150 ml 160 ml -1300 ml Justicifation of Admission Dx: Justifications for Admission: Justification of Admission Dx: Yes MONTSE GRAHAM [employer] TECHNICIAN Apr 04, 2020 08:31
[2020-04-04] MEDS: INSULIN LISPRO 300 UNITS/3 ML VIAL. SQ SCH ×2 (08:36→11:30)
[2020-04-04] MEDS ORDERED: TAMSULOSIN 0.4 MG CAP.ER.24H. PO SCH (09:00)
[2020-04-04] MEDS ORDERED: buPROPion XL 150 MG TAB.ER.24H. PO SCH (09:00)
[2020-04-04] MEDS ORDERED: OLANZapine 2.5 MG TABLET PO SCH (09:00)
[2020-04-04] MEDS ORDERED: ASPIRIN CHEWABLE 81 MG TABLET. PO SCH (09:00)
[2020-04-04] MEDS ORDERED: VENLAFAXINE XR 37.5 MG CAP.ER.24H. PO SCH (09:00)
[2020-04-04] MEDS ORDERED: CETIRIZINE HCL 10 MG TABLET. PO SCH (09:00)
[2020-04-04] MEDS ORDERED: ISOSORBIDE MONONITRATE ER 30 MG TAB.ER.24H PO SCH (09:00)
[2020-04-04] MEDS ORDERED: CLOPIDOGREL BISULFATE 75 MG TABLET PO SCH (09:00)
[2020-04-04] MEDS ORDERED: TORSEMIDE 20 MG TABLET. PO PRN (09:00)
[2020-04-04] MEDS ORDERED: LISINOPRIL 5 MG TABLET. PO SCH (09:00)
--- NOTE | 2020-04-04 09:30 | NUR ---
Wound Care Wound Type/Assessment: Pt has multiple wounds to right leg and BKA. All wounds were debrided in OR yesterday. Wounds pictured and measured and redressed for discharge. Treatment Recommendations/Plan: Dressed all wounds with hydrofera blue and gauze, secured with tape. Recommendation of wound vac to be applied to R medial BKA after discharge by HHRN, when vac eddie is approved. Pt will continue to follow in [facility] Education provided: Educated pt on POC for wound care, verbalized understanding. Offloading surface/device: heel floated on pillow Recommended Referrals/Tests: none Discharge Recommendations for dressings: HFB and gauze until vac arrives.
--- NOTE | 2020-04-04 10:59 | DISCH ---
DISCHARGE INSTRUCTIONS Condition on Discharge Condition on Discharge: Stable Activity After Discharge Activity Instructions for Disc: Bedrest today Lifting Instructions after Dis: No heavy lifting, No pulling or pushing, Do not lift >10 pounds Diet after Discharge Diet after Discharge: Diabetic No Calorie Level Wound Incision Care Wound/Incision Care: Keep wound/cast CDI Other wound/incision instructi: follow wound care team instructions Contacting the DRAn after DC Call your doctor for: If your condition worsens Follow-Up Follow up with: Dr. Whitaker in 04/16/2020 8:15 please call for directions [phone] Treatment/Equipment after DC Adaptive Equipment Issued: MONTSE Sepulveda APRN Apr 04, 2020 10:59
[2020-04-04 11:00] VITALS: BP 125/73
--- NOTE | 2020-04-04 11:14 | SNU/HH DC ---
DISCHARGE WITH HOME HEALTH DISCHARGE INFORMATION: Discharge Date: Apr 04, 2020 Final Diagnosis: Right femoral stenosis, BKA stump ulcers Condition on Discharge: Stable CODE STATUS: Code Status: Full HOME HEALTH: Face to Face: I certify this patient is under my care and that I, or a nurse practitioner or physician's assistant women's soccer coach working with me, had a face to face encounter that meets the physician face to face encounter requirements with this patient on []. RN For Eval/Treatment: Yes Home Health Aide For: Other (wound care) Pt Meets Homebound Status: Limited distance walking POST DISCHARGE ORDERS: Activity Instructions for Disc: Bedrest today Wound/Incision Care: Keep wound/cast CDI Other wound/incision instructi: follow wound care team instructions FOLLOW-UP: Follow up with: Dr. Whitaker in 2-3 weeks please call for appointment [phone] TREATMENT/EQUIPMENT ORDERS: Adaptive Equipment Issued: None CERTIFICATION STATEMENT: Certification Statement: Certification Statement: Based on the above finding, I certify that this patient is confined to the home and needs intermittent residential care, physical t herapy and/or speech therapy, or continues to need occupational therapy.~ This patient is under my care, and I have initiated the establishment of the plan of care.~ This patient will be followed by myself or a community physician who will periodically review the plan of care. Home Meds Reported Medications Aspirin (ASPIRIN) 81 Mg Tab.chew, 81 MG PO DAILY for heart, TAB.CHEW 04/02/20 Rosuvastatin Calcium (CRESTOR) 5 Mg Tablet, 20 MG PO HS for FOR CHOLESTEROL, #30 TAB 0 Refills 04/02/20 Isosorbide Mononitrate (ISOSORBIDE MONONITRATE) 20 Mg Tablet, 30 MG PO DAILY for htn, TAB 04/02/20 Carvedilol (CARVEDILOL) 25 Mg Tablet, 12.5 MG PO BIDWMEALS for CARDIAC, TAB 04/02/20 Bupropion Hcl (WELLBUTRIN SR) 200 Mg Tablet.er, 300 MG PO DAILY for depression, TAB.SR 04/02/20 Venlafaxine Hcl (EFFEXOR XR) 37.5 Mg Cap.er.24h, 75 MG PO DAILY for antidepressant, CAP.SR 02/13/20 Torsemide (TORSEMIDE) 10 Mg Tablet, 10 MG PO PRN DAILY PRN for fluid retention, TAB 02/13/20 Olanzapine (OLANZAPINE) 7.5 Mg Tablet, 7.5 MG PO DAILY for bipolar control, TAB 02/13/20 Nitroglycerin (NITROGLYCERIN SubLingual) 0.4 Mg Tab.subl, 0.4 MG SL PRN Q5MIN PRN for CHEST PAIN, BOTTLE 02/13/20 Metoclopramide Hcl (REGLAN) 10 Mg Tablet, 10 MG PO QIDACHS for gerd, #120 TAB 0 Refills 02/13/20 Cetirizine Hcl (CETIRIZINE HCL) 10 Mg Tablet, 10 MG PO DAILY for allergy control, TAB 02/13/20 Clopidogrel Bisulfate (CLOPIDOGREL) 75 Mg Tablet, 1 TAB PO DAILY for blood thinner, #90 TAB 1 Refill 11/22/19 Tamsulosin Hcl (FLOMAX) 0.4 Mg Cap.er.24h, 0.4 MG PO DAILY for , TAB 11/22/19 Omeprazole (OMEPRAZOLE) 40 Mg Capsule.dr, 40 MG PO DAILY for , CAP 11/22/19 Lisinopril (LISINOPRIL) 5 Mg Tablet, 5 MG PO DAILY for FOR HYPERTENSION, #30 TAB 0 Refills 11/22/19 Insulin Detemir (LEVEMIR) 100 Unit/1 Ml Vial, 45 UNIT SQ HS for diabetes, VIAL 11/22/19 Insulin Aspart (NOVOLOG FLEXPEN) 100 Unit/1 Ml Insuln.pen, 10 UNIT SQ PRN PRN for diabetes, SYR 11/22/19 Hydrocodone Bit/Acetaminophen (HYDROCODONE-APAP 7.5-325 ) 1 Tab Tablet, 1 TAB PO PRN Q8HRS PRN for PAIN, TAB 0 Refills 11/22/19 Gabapentin (GABAPENTIN ) 300 Mg Capsule, 600 MG PO TID for NEUROGENIC PAIN, CAP 11/22/19 Cholecalciferol (Vitamin D3) (Vitamin D3) 2,000 Unit Tab.chew, 0.5 TAB PO DAILY for for 30 Days, #15 TAB 0 Refills 11/22/19 Budesonide/Formoterol Fumarate (SYMBICORT 160-4.5 MCG INHALER) 10.2 Gm Hfa.aer.ad, 2 PUFF IH BID for , #10.6 GM 3 Refills 11/22/19 Aspirin/Acetaminophen/Caffeine (EXCEDRIN MIGRAINE CAPLET) 1 Each Tablet, 1 EACH PO PRN PRN for MIGRAINE HEADACHE, TAB 11/22/19 Albuterol Sulfate (PROAIR HFA INHALER) 8.5 Gm Hfa.aer.ad, 2 PUFF IH PRN Q4-6HRS PRN for wheezing for 21 Days, #1 INHALER 0 Refills 11/22/19 Discontinued Reported Medications Testosterone (ANDROGEL) 5 Gm Gel.packet, 5 GM TD DAILY for supplement, PKT 02/13/20 LASHON LOVE MD Apr 04, 2020 11:14
--- NOTE | 2020-04-04 11:38 | PDOC3 ---
Discharge Summary Visit Information Date of Admission: Apr 03, 2020 Date of Discharge: Apr 04, 2020 Admitting Diagnosis Comment: BKA stump wound - s/p surgical debridement and revascularization with right iliofemoral and profundofemoral endarterectomy. Wound nurse to see for dressing changes. IS bedside. Pain control Heavy smoker (36 cigarettes per day) - counseled on cessation. He is down from 3 packs per day CAD - cont meds, coreg, ASA, plavix, Imdur Depression - cont wellbutrin, zyprexa HLD - cont statin Prior CVA - cont statin, antiplatelet agents, BP and glycemic control Diabetes mellitus - will place on basal bolus plus insulin regimen CKD - Cr 1.8, will monitor post-op renal function Severe PAD s/p below-knee amputation on the right in 2017 - s/p right iliofemoral and profundofemoral endarterectomy and some debridement 04/03/2020 Leukocytosis - will monitor, no clear sign of infection, given perioperative antibiotics Macrocytosis, RBC - check B12, counseled on minimizing alcohol use Final Diagnosis BKA stump wound - POD #1 Heavy smoker (36 cigarettes per day) - counseled on cessation. He is down from 3 packs per day CAD asymptomatic Depression - Dyslipidemia Prior CVA - Diabetes mellitus - CKD - Cr 1.8, Severe PAD s/p below-knee amputation on the right in 2017 - s/p right iliofemoral and profundofemoral endarterectomy and some debridement 04/03/2020 Leukocytosis -reactive leukocytosis secondary to surgical procedure most likely afebrile Macrocytosis, RBC - Brief Hospital Course Allergies Allergies Coded Allergies Type Severity Reaction Last Updated Verified I S O L A T I O N *CONTACT* Allergy Unknown 04/03/20 Yes No Known Medication Allergies Allergy Unknown 04/03/20 Yes Vital Signs Vital Signs Date Time Temp Pulse Resp B/P (MAP) Pulse Ox O2 Delivery O2 Flow Rate FiO2 04/04/20 08:27 81 152/83 04/04/20 08:09 94 Room Air 04/04/20 07:00 98.1 20 98.1 04/04/20 03:55 3.0 Lab Results Laboratory Tests Test 04/03/20 08:31 04/03/20 08:32 04/03/20 15:01 04/03/20 16:37 Glucose (Fingerstick) 115 mg/dL (70-99) 164 mg/dL (70-99) 150 mg/dL (70-99) White Blood Count 13.6 x10^3/uL (4.0-11.0) Red Blood Count 4.09 x10^6/uL (4.30-5.70) Hemoglobin 14.1 g/dL (13.0-17.5) Hematocrit 43.0 % (39.0-53.0) Mean Corpuscular Volume 105 fL (79-100) Mean Corpuscular Hemoglobin 35 pg (25-35) Mean Corpuscular Hemoglobin Concent 33 g/dL (31-37) Red Cell Distribution Width 17.3 % (11.5-14.5) Platelet Count 197 x10^3/uL (140-400) Neutrophils (%) (Auto) 80 % (31-73) Lymphocytes (%) (Auto) 11 % (24-48) Monocytes (%) (Auto) 6 % (0-9) Eosinophils (%) (Auto) 2 % (0-3) Basophils (%) (Auto) 1 % (0-3) Neutrophils # (Auto) 10.9 x10^3/uL (1.8-7.7) Lymphocytes # (Auto) 1.5 x10^3/uL (1.0-4.8) Monocytes # (Auto) 0.8 x10^3/uL (0.0-1.1) Eosinophils # (Auto) 0.2 x10^3/uL (0.0-0.7) Basophils # (Auto) 0.1 x10^3/uL (0.0-0.2) Sodium Level 138 mmol/L (136-145) Potassium Level 4.7 mmol/L (3.5-5.1) Chloride Level 103 mmol/L (98-107) Carbon Dioxide Level 24 mmol/L (21-32) Anion Gap 11 (6-14) Blood Urea Nitrogen 28 mg/dL (8-26) Creatinine 1.8 mg/dL (0.7-1.3) Estimated GFR (Cockcroft-Gault) 39.4 Glucose Level 119 mg/dL (70-99) Calcium Level 9.1 mg/dL (8.5-10.1) Test 04/03/20 20:44 04/04/20 04:15 04/04/20 08:00 Glucose (Fingerstick) 272 mg/dL (70-99) 256 mg/dL (70-99) White Blood Count 14.4 x10^3/uL (4.0-11.0) Red Blood Count 3.82 x10^6/uL (4.30-5.70) Hemoglobin 13.0 g/dL (13.0-17.5) Hematocrit 40.6 % (39.0-53.0) Mean Corpuscular Volume 106 fL (79-100) Mean Corpuscular Hemoglobin 34 pg (25-35) Mean Corpuscular Hemoglobin Concent 32 g/dL (31-37) Red Cell Distribution Width 17.7 % (11.5-14.5) Platelet Count 180 x10^3/uL (140-400) Neutrophils (%) (Auto) 83 % (31-73) Lymphocytes (%) (Auto) 10 % (24-48) Monocytes (%) (Auto) 7 % (0-9) Eosinophils (%) (Auto) 0 % (0-3) Basophils (%) (Auto) 0 % (0-3) Neutrophils # (Auto) 11.9 x10^3/uL (1.8-7.7) Lymphocytes # (Auto) 1.4 x10^3/uL (1.0-4.8) Monocytes # (Auto) 1.1 x10^3/uL (0.0-1.1) Eosinophils # (Auto) 0.0 x10^3/uL (0.0-0.7) Basophils # (Auto) 0.0 x10^3/uL (0.0-0.2) Sodium Level 136 mmol/L (136-145) Potassium Level 4.4 mmol/L (3.5-5.1) Chloride Level 102 mmol/L (98-107) Carbon Dioxide Level 25 mmol/L (21-32) Anion Gap 9 (6-14) Blood Urea Nitrogen 22 mg/dL (8-26) Creatinine 1.5 mg/dL (0.7-1.3) Estimated GFR (Cockcroft-Gault) 48.6 BUN/Creatinine Ratio 15 (6-20) Glucose Level 232 mg/dL (70-99) Calcium Level 7.7 mg/dL (8.5-10.1) Total Bilirubin 0.2 mg/dL (0.2-1.0) Aspartate Amino Transf (AST/SGOT) 12 U/L (15-37) Alanine Aminotransferase (ALT/SGPT) 11 U/L (16-63) Alkaline Phosphatase 124 U/L (46-116) Total Protein 6.7 g/dL (6.4-8.2) Albumin 2.6 g/dL (3.4-5.0) Albumin/Globulin Ratio 0.6 (1.0-1.7) Laboratory Tests Test 04/03/20 15:01 04/03/20 16:37 04/03/20 20:44 04/04/20 04:15 Glucose (Fingerstick) 164 mg/dL (70-99) 150 mg/dL (70-99) 272 mg/dL (70-99) White Blood Count 14.4 x10^3/uL (4.0-11.0) Red Blood Count 3.82 x10^6/uL (4.30-5.70) Hemoglobin 13.0 g/dL (13.0-17.5) Hematocrit 40.6 % (39.0-53.0) Mean Corpuscular Volume 106 fL (79-100) Mean Corpuscular Hemoglobin 34 pg (25-35) Mean Corpuscular Hemoglobin Concent 32 g/dL (31-37) Red Cell Distribution Width 17.7 % (11.5-14.5) Platelet Count 180 x10^3/uL (140-400) Neutrophils (%) (Auto) 83 % (31-73) Lymphocytes (%) (Auto) 10 % (24-48) Monocytes (%) (Auto) 7 % (0-9) Eosinophils (%) (Auto) 0 % (0-3) Basophils (%) (Auto) 0 % (0-3) Neutrophils # (Auto) 11.9 x10^3/uL (1.8-7.7) Lymphocytes # (Auto) 1.4 x10^3/uL (1.0-4.8) Monocytes # (Auto) 1.1 x10^3/uL (0.0-1.1) Eosinophils # (Auto) 0.0 x10^3/uL (0.0-0.7) Basophils # (Auto) 0.0 x10^3/uL (0.0-0.2) Sodium Level 136 mmol/L (136-145) Potassium Level 4.4 mmol/L (3.5-5.1) Chloride Level 102 mmol/L (98-107) Carbon Dioxide Level 25 mmol/L (21-32) Anion Gap 9 (6-14) Blood Urea Nitrogen 22 mg/dL (8-26) Creatinine 1.5 mg/dL (0.7-1.3) Estimated GFR (Cockcroft-Gault) 48.6 BUN/Creatinine Ratio 15 (6-20) Glucose Level 232 mg/dL (70-99) Calcium Level 7.7 mg/dL (8.5-10.1) Total Bilirubin 0.2 mg/dL (0.2-1.0) Aspartate Amino Transf (AST/SGOT) 12 U/L (15-37) Alanine Aminotransferase (ALT/SGPT) 11 U/L (16-63) Alkaline Phosphatase 124 U/L (46-116) Total Protein 6.7 g/dL (6.4-8.2) Albumin 2.6 g/dL (3.4-5.0) Albumin/Globulin Ratio 0.6 (1.0-1.7) Test 04/04/20 08:00 Glucose (Fingerstick) 256 mg/dL (70-99) Brief Hospital Course History of Present Illness Reason for Visit: Mr Caputo is a 54 yo M w/ PMHx heavy smoker (36 cigarettes per day), CAD, HLD, CKD3, prior CVA, diabetes mellitus, severe PAD s/p below-knee amputation on the right in 2017 who presented to vascular surgery for poorly healing right BKA stump wound. 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 Labs significant for WBC 13.6, Hb 14.1, platelets 197, MCV 105, Na 138, K 4.7, BUN 28, Cr 1.8, glucose 119. Admitted for further care post-operatively. Patient had a very uneventful stay. He recovered well from his surgery and was seen by vascular this morning. [facility] the patient unfortunately is unable to pay for the services and he will follow-up with Dr. Rivas and his clinic in the outpatient setting. pharmacy services representative will be provided for the patient with home health in hopefully he will continue to heal as expected. Canceling regarding importance of quitting smoking was given to the patient all of his concerns were addressed to the best of my abilities signs and symptoms of alarm and when to seek medical attention was also discussed with the patient prior to discharge Physical Exam General: Alert, Oriented X3, Cooperative, No acute distress HEENT: Atraumatic, PERRLA, EOMI, Mucous membr. moist/pink Lungs: Clear to auscultation, Normal air movement Heart: Regular rate, Normal S1, Normal S2, No murmurs Abdomen: Normal bowel sounds, Soft, No tenderness, No hepatosplenomegaly, No masses Extremities: No clubbing, No cyanosis, Normal pulses, Other (right stump dressed, no saturated) Skin: No rashes, No breakdown Neuro: Normal speech, Strength at 5/5 X4 ext, Normal tone, Sensation intact, Cranial nerves 3-12 NL, Reflexes 2+ Psych/Mental Status: Mental status NL, Mood NL MUSCULOSKELETAL: No joint tenderness, Abnormal exam of right Assessment Assessment OPERATIVE NOTE Date: Date: Apr 03, 2020 Pre-Op Diagnosis: Atherosclerosis of [place] arteries of right lower extremity with ulceration of the calf Post-Op Diagnosis: Same as above Procedure Performed: 1. Right iliofemoral endarterectomy 2. Right profundofemoral endarterectomy 3. Debridement of wound right below-knee amputation stump equivalent of the right calf7 cm x 5 cm = 35 cm total square surface area skin and subcutaneous tissue and fascia not including muscle or bone Surgeon: Nain Rivas MD vascular surgery Anesthesia Type: General Blood Loss: 50 cc at most Specimans Obtained: None Findings: High-grade stenosis at the distal iliac artery entire common femoral artery and most of the first portion of the profunda femoris artery the way down to its initial branches Successful extensive endarterectomy of above vessels The wound at the below-knee amputation stump was relatively superficial and was debrided easily with a good bleeding at the skin edges Complications: None Operative Note: Patient was taken to the operating room and placed supine on the table. The abdomen groins and right lower extremity were prepped and draped in usual sterile fashion. Proper timeout was performed. Attention was directed the right groin where local anesthetic was injected and a small longitudinal incision was made just below the inguinal ligament over the femoral pulse. This is carried down with Bovie cautery until the femoral sheath was identified. I placed an Omni retractor proximally and self-retaining retractors distally for improved exposure and then the open the femoral sheath longitudinally. The common femoral profunda femoris and proximal superficial femoral arteries were dissected free from surrounding structures and controlled Vesseloops. The iliac artery above the inguinal ligament was heavily calcified and significantly diseased on palpation so the inguinal ligament was mobilized medially and laterally and the Omni retractor was used to elevate the inguinal ligament and retracted cranially so that I was able to expose the iliac artery well above the inguinal ligament. This was dissected free with scissors and the mid external iliac artery was dissected free and a soft spot amenable to Lamping was palpated. The patient was given intravenous heparin. All of the side branches were controlled with Vesseloops and I carried out dissection along the very distal profunda femoris artery quite a distance down past its origin several centimeters and individually controlled branches of the profunda femoris. These branches were individually occluded with Vesseloops and then the external iliac artery well above the inguinal ligament was controlled with a Satinsky clamp. A longitudinal arteriotomy was created with a #11 scalpel and extended with Fam angled scissors starting on the common femoral artery. This was extended proximally and I used a [place] endarterectomy specialist perform an extensive common femoral endarterectomy. The plaque was still nearly occlusive and quite bulky above the inguinal ligament and so a significant amount of plaque was dissected free circumferentially and then I used tonsils to reach well up into the artery while above the inguinal ligament and remove a large amount of plaque from the iliac artery all the way up to the clamp making this a extensive iliofemoral endarterectomy. Distally I everted some plaque from the superficial femoral artery and there was an old stent in the SFA that was completely occluded and there was no backbleeding from this. The profunda femoris had heavy plaque at its origin and so the arteriotomy was taken down onto the profunda femoris artery and another large a bulky plaque was everted from the profunda femoris artery all the way down to its branch points with a good endpoint. A bovine pericardial patch was brought to the field and used to repair the endarterectomy. The SFA was transected away from the bifurcation. The tapered into the patch was a started distally onto the profunda in the standard profundoplasty fashion and the patch was sewn in place from the profunda femoris up onto the common femoral artery using a running 6-0 Prolene distally and a 5-0 Prolene approximately. Just prior to completion of the pair the vessels are back his blood for flushed irrigated heparinized saline. Repair was completed normal for flow was returned down the leg. A hand-held continuous-wave Doppler confirmed excellent signal in the distal profunda femoris artery. The proximal SFA was ligated with silk ties after the stent was cut out of the proximal SFA. The wounds were irrigated protamine was used to reverse the heparin and exce llent hemostasis was achieved. The deep layers were closed with a series of interrupted 2-0 Vicryl followed by a subdermal 3-0 Vicryl and a subcuticular 4-0 Vicryl. The groin was cleaned and dried and a VAC Mariela dressing was placed over the incision. Once the groin had been completely closed and dressed attention was then directed to the right BKA stump. There was a significant amount of nonviable necrotic tissue at the wound and this was irrigated and then debrided aggressively using an excisional debridement technique using scissors and a Bovie cautery to cut away tissue. This was done until there was good healthy tissue at all edges of the wound with good bleeding and a good wound base. Bovie cautery was used to obtain hemostasis. The wound was packed with Kerlix and then the stump was wrapped with Kerlix and a Coban The patient was awakened and extubated operating room and escorted recovery in stable condition. There are no complications and he tolerated procedure well throughout. At the end the case all sponge, needle, and instrument counts reported to me as correct x2. MANUEL RIVAS MD Apr 03, 2020 13:56 Discharge Information Condition at Discharge: Improved Follow Up: Weeks Disposition/Orders: D/C to Home Scheduled Aspirin (Aspirin) 81 Mg Tab.chew, 81 MG PO DAILY for heart, (Reported) Entered as Reported by: CHARLIE SAUL on 04/02/20 1359 Last Taken: Unknown Dose on 04/02/20 0500 Last Action: Continued on 04/03/20 1401 by MANUEL RIVAS MD Budesonide/Formoterol Fumarate (Symbicort 160-4.5 Mcg Inhaler) 10.2 Gm Hfa.aer.ad, 2 PUFF IH BID for , #10.6 Ref 3 (Reported) Entered as Reported by: MAYNOR LANGSTON on 11/22/191103 Last Action: Converted on 04/03/201400 by MANUEL RIVAS MD Bupropion Hcl (Wellbutrin Sr) 200 Mg Tablet.er, 300 MG PO DAILY for depression, (Reported) Entered as Reported by: CHARLIE SAUL on 04/02/20 134 Last Action: Converted on 04/03/201400 by MANUEL RIVAS MD Carvedilol (Carvedilol) 25 Mg Tablet, 12.5 MG PO BIDWMEALS for CARDIAC, (Reported) Entered as Reported by: CHARLIE SAUL on 04/02/20 134 Last Taken: Unknown Dose on 04/02/20 1900 Last Action: Converted on 04/03/201400 by MANUEL RIVAS MD Cetirizine Hcl (Cetirizine Hcl) 10 Mg Tablet, 10 MG PO DAILY for allergy control, (Reported) Entered as Reported by: KARI VALLES on 02/13/201450 Last Action: Continued on 04/03/201400 by MANUEL RIVAS MD Cholecalciferol (Vitamin D3) (Vitamin D3) 2,000 Unit Tab.chew, 0.5 TAB PO DAILY for for 30 Days, #15 Ref 0 (Reported) Entered as Reported by: MAYNOR LANGSTON on 11/22/191103 Last Action: HELD on 04/03/201400 by MANUEL RIVAS MD Clopidogrel Bisulfate (Clopidogrel) 75 Mg Tablet, 1 TAB PO DAILY for blood thinner, #90 Ref 1 (Reported) Entered as Reported by: TONY GUADARRAMA on 11/22/19 145 Last Taken: Unknown Dose on 04/02/20 0500 Last Action: Continued on 04/03/201400 by MANUEL RIVAS MD Gabapentin (Gabapentin ) 300 Mg Capsule, 600 MG PO TID for NEUROGENIC PAIN, (Reported) Entered as Reported by: MAYNOR LANGSTON on 11/22/19 110 Last Action: Continued on 04/03/201400 by MANUEL RIVAS MD Insulin Detemir (Levemir) 100 Unit/1 Ml Vial, 45 UNIT SQ HS for diabetes, (Reported) Entered as Reported by: MAYNOR LANGSTON on 11/22/191103 Last Action: Converted on 04/03/201400 by MANUEL RIVAS MD Isosorbide Mononitrate (Isosorbide Mononitrate) 20 Mg Tablet, 30 MG PO DAILY for htn, (Reported) Entered as Reported by: CHARLIE SAUL on 04/02/20 1349 Last Action: Continued on 04/03/201400 by MANUEL RIVAS MD Lisinopril (Lisinopril) 5 Mg Tablet, 5 MG PO DAILY for FOR HYPERTENSION, #30 Ref 0 (Reported) Entered as Reported by: MAYNOR LANGSTON on 11/22/191103 Last Taken: Unknown Dose on 04/02/20 0500 Last Action: Continued on 04/03/201400 by MANUEL RIVAS MD Metoclopramide Hcl (Reglan) 10 Mg Tablet, 10 MG PO QIDACHS for gerd, #120 Ref 0 (Reported) Entered as Reported by: KARI VALLES on 02/13/201450 Last Action: Reviewed on 04/03/20 08 by Fanny Perez Olanzapine (Olanzapine) 7.5 Mg Tablet, 7.5 MG PO DAILY for bipolar control, (Reported) Entered as Reported by: KARI VALLES on 02/13/201450 Last Action: Converted on 04/03/201400 by MANUEL RIVAS MD Omeprazole (Omeprazole) 40 Mg Capsule.dr, 40 MG PO DAILY for , (Reported) Entered as Reported by: MAYNOR LANGSTON on 11/22/191103 Last Action: Converted on 04/03/201400 by MANUEL RIVAS MD Rosuvastatin Calcium (Crestor) 5 Mg Tablet, 20 MG PO HS for FOR CHOLESTEROL, #30 Ref 0 (Reported) Entered as Reported by: CHARLIE SAUL on 04/02/20 1354 Last Action: Converted on 04/03/201400 by MANUEL RIVAS MD Tamsulosin Hcl (Flomax) 0.4 Mg Cap.er.24h, 0.4 MG PO DAILY for , (Reported) Entered as Reported by: MAYNOR LANGSTON on 11/22/191103 Last Action: Continued on 04/03/201400 by MANUEL RIVAS MD Venlafaxine Hcl (Effexor Xr) 37.5 Mg Cap.er.24h, 75 MG PO DAILY for antidepressant, (Reported) Entered as Reported by: KARI VALLES on 02/13/201450 Last Action: Continued on 04/03/201400 by MANUEL RIVAS MD Scheduled PRN Albuterol Sulfate (Proair Hfa Inhaler) 8.5 Gm Hfa.aer.ad, 2 PUFF IH PRN Q4-6HRS PRN for wheezing for 21 Days, #1 Ref 0 (Reported) Entered as Reported by: MAYNOR LANGSTON on 11/22/191103 Last Action: Continued on 04/03/201400 by MANUEL RIVAS MD Aspirin/Acetaminophen/Caffeine (Excedrin Migraine Caplet) 1 Each Tablet, 1 EACH PO PRN PRN for MIGRAINE HEADACHE, (Reported) Entered as Reported by: MAYNOR LANGSTON on 11/22/191103 Last Action: Continued on 04/03/201400 by MANUEL RIVAS MD Hydrocodone Bit/Acetaminophen (Hydrocodone-Apap 7.5-325 ) 1 Tab Tablet, 1 TAB PO PRN Q8HRS PRN for PAIN, Ref 0 (Reported) Entered as Reported by: MAYNOR LANGSTON on 11/22/191103 Last Action: Continued on 04/03/201400 by MANUEL RIVAS MD Insulin Aspart (Novolog Flexpen) 100 Unit/1 Ml Insuln.pen, 10 UNIT SQ PRN PRN for diabetes, (Reported) Entered as Reported by: MAYNOR LANGSTON on 11/22/191103 Last Action: Converted on 04/03/201400 by MANUEL RIVAS MD Nitroglycerin (NITROGLYCERIN SubLingual) 0.4 Mg Tab.subl, 0.4 MG SL PRN Q5MIN PRN for CHEST PAIN, (Reported) Entered as Reported by: KARI VALLES on 02/13/201450 Last Action: Continued on 04/03/201400 by MANUEL RIVAS MD Torsemide (Torsemide) 10 Mg Tablet, 10 MG PO PRN DAILY PRN for fluid retention, (Reported) Entered as Reported by: KARI VALLES on 02/13/201450 Last Action: Converted on 04/03/20 140 by MANUEL RIVAS MD Discontinued Medications Testosterone (Androgel) 5 Gm Gel.packet, 5 GM TD DAILY for supplement, (Reported) Entered as Reported by: KARI VALLES on 02/13/201450 Last Action: Discontinued on 04/02/20 1354 by CHARLIE SAUL Justicifation of Admission Dx: Justifications for Admission: Justification of Admission Dx: Yes LASHON LOVE MD Apr 04, 2020 11:38
--- NOTE | 2020-04-04 12:06 | NUR ---
SS following for discharge planning. SS reviewed pt chart and discussed with pt RN. Pt is from home with spouse and is currently on room air. Discharge order on the chart for home with home healthcare. Pt and pt's spouse requesting either [email or web address], ; fax [phone], or [email or web address], ; fax . SS phoned and faxed discharge orders and referral to [facility] and [facility]. Pt's RN notified.
--- NOTE | 2020-04-04 12:35 | NUR ---
Discharge Note: JOANN CHAMPION [address] Discharge instructions and discharge home medications reviewed with Patient and a copy given. All questions have been answered and understanding verbalized. Prevena wound vac in place. Dressings clean, dry, and intact. Home health care and follow up appointment information provided to patient. All belongings taken with patient upon discharge along with home wheelchair. The following instructions and handouts were given: femoral endarterectomy after care Discontinued lines and drains: Peripheral IV intact. Patient discharged to Home w/services with Spouse via Wheelchair
== END 2020-04-04 12:35 | disposition home health service (06) | DRG 271 ==
LOC: OPSVCIP 07:52 → 2 SOUTH 15:31
PROVIDERS: ADMIT Internal Medicine; ATTEND Surgery Vascular Surgery
PROC: 04UK0KZ Supplement Right Femoral Artery with Nonautologous Tissue Substitute, Open Approach (ICD-10-PCS; 2020-04-03)
PROC: 0JBN0ZZ Excision of Right Lower Leg Subcutaneous Tissue and Fascia, Open Approach (ICD-10-PCS; 2020-04-03)
PROC: 04CC0ZZ Extirpation of Matter from Right Common Iliac Artery, Open Approach (ICD-10-PCS; principal; 2020-04-03 10:00)
PROC: 04CK0ZZ Extirpation of Matter from Right Femoral Artery, Open Approach (ICD-10-PCS; 2020-04-03 10:00)
DX: I70.232 Atherosclerosis of native arteries of right leg with ulceration of calf (principal); T82.856A Stenosis of peripheral vascular stent, initial encounter; T87.53 Necrosis of amputation stump, right lower extremity; L97.219 Non-pressure chronic ulcer of right calf with unspecified severity; N18.3 Chronic kidney disease, stage 3 (moderate); I70.8 Atherosclerosis of other arteries; I25.10 Atherosclerotic heart disease of native coronary artery without angina pectoris; F32.9 Major depressive disorder, single episode, unspecified; E78.5 Hyperlipidemia, unspecified; I12.9 Hypertensive chronic kidney disease with stage 1 through stage 4 chronic kidney disease, or unspecified chronic kidney disease; E11.22 Type 2 diabetes mellitus with diabetic chronic kidney disease; D72.828 Other elevated white blood cell count; E11.51 Type 2 diabetes mellitus with diabetic peripheral angiopathy without gangrene; G43.909 Migraine, unspecified, not intractable, without status migrainosus; F17.210 Nicotine dependence, cigarettes, uncomplicated; D75.89 Other specified diseases of blood and blood-forming organs; Y83.8 Other surgical procedures as the cause of abnormal reaction of the patient, or of later complication, without mention of misadventure at the time of the procedure; Y83.5 Amputation of limb(s) as the cause of abnormal reaction of the patient, or of later complication, without mention of misadventure at the time of the procedure; Z86.73 Personal history of transient ischemic attack (TIA), and cerebral infarction without residual deficits; Z85.46 Personal history of malignant neoplasm of prostate; Z83.3 Family history of diabetes mellitus; Z82.49 Family history of ischemic heart disease and other diseases of the circulatory system; Z84.1 Family history of disorders of kidney and ureter; Z83.49 Family history of other endocrine, nutritional and metabolic diseases; Z71.6 Tobacco abuse counseling; Z90.49 Acquired absence of other specified parts of digestive tract; Z89.511 Acquired absence of right leg below knee; Y92.89 Other specified places as the place of occurrence of the external cause
CPT/HCPCS: 36415; 80048; 80053; 82607; 82962; 85025; 94640; 94760; A7015; J0690; J1100; J1644; J1815; J2250; J2270; J2405; J2704; J2710; J2720; J3010; J3490; J7040; J7120; Q9967; A4461; G0378; J7613

== ENCOUNTER 2020-04-18 10:16 | Day surgery (SDC) | payer MEDICARE, OTHER ==
[~2020-04-18 10:16] MED LIST changes: +ASPI325T8 PO; +BACITRACIN 50,000 UNIT in IV NORMAL SALINE 500ML BAG 500 ML IRR ONE; +BUSP5TAB PO; +CEPH-264 PO; -HEPARIN SODIUM 5,000 UNIT in IV NORMAL SALINE 500ML BAG 500 ML IRR ONE; +LISI2.5T PO; +MORPHINE SULFATE 2 MG/ML VIAL. IV PRN; +NYST15PO9 TP; -PROCHLORPERAZINE 10 MG/2 ML VIAL. IV PRN; +TESTOSTERONE 1.62%; +VENL150C PO
[2020-04-18] MEDS ORDERED: INSULIN LISPRO 100 UNIT/ML 3ML VIAL for OP,RR ONLY. SQ PRN (10:30)
[2020-04-18] MEDS ORDERED: INSULIN LISPRO 100 UNIT/ML 3ML VIAL for OP,RR ONLY. SQ ONE (11:00)
[2020-04-18 11:03] LABS: CALCIUM 8.3 mg/dL (8.5-10.1); CREATININE 1.6 mg/dL (0.7-1.3); GFR 45.1; POTASSIUM 5.4 mmol/L (3.5-5.1)
[2020-04-18 11:05] LABS: BASO # 0.1 x10^3/uL (0.0-0.2); BASO % 1 % (0-3); EOS # 0.2 x10^3/uL (0.0-0.7); EOS % 1 % (0-3); HEMATOCRIT 39.3 % (39.0-53.0); HEMOGLOBIN 13.2 g/dL (13.0-17.5); LYMPH # 1.3 x10^3/uL (1.0-4.8); LYMPH % 13 % (24-48); MEAN CORPUSCULAR HEMOGLOBIN 35 pg (25-35); MEAN CORPUSCULAR HGB CONC 34 g/dL (31-37); MEAN CORPUSCULAR VOLUME 105 fL (79-100); MONO # 0.8 x10^3/uL (0.0-1.1); MONO % 8 % (0-9); NEUT # 8.1 x10^3/uL (1.8-7.7); NEUT % 78 % (31-73); PLATELET COUNT 278 x10^3/uL (140-400); RED BLOOD COUNT 3.73 x10^6/uL (4.30-5.70); RED CELL DISTRIBUTION WIDTH 17.4 % (11.5-14.5); WHITE BLOOD COUNT 10.5 x10^3/uL (4.0-11.0)
[2020-04-18] MEDS ORDERED: LIDOCAINE 2% PF 5 ML VIAL. ONE (13:08)
[2020-04-18] MEDS ORDERED: fentaNYL PF VIAL 100 MCG/2 ML VIAL ONE (13:08)
[2020-04-18] MEDS ORDERED: PROPOFOL 10 MG/ML (20ML) VIAL. IV ONE (13:08)
[2020-04-18] MEDS ORDERED: ONDANSETRON PF 4 MG/2 ML VIAL. ONE (13:09)
[2020-04-18] MEDS ORDERED: FAMOTIDINE 20 MG/2 ML VIAL ONE (13:09)
[2020-04-18] MEDS ORDERED: METOCLOPRAMIDE HCL 10 MG/2 ML VIAL. ONE (13:09)
[2020-04-18 13:55] VITALS: BP 154/81
== END 2020-04-18 14:12 | disposition home or self-care (01) ==
LOC: SURG 10:16
PROVIDERS: ATTEND Surgery Vascular Surgery
DX: Z53.8 Procedure and treatment not carried out for other reasons (principal); Z11.59 Encounter for screening for other viral diseases; T87.89 Other complications of amputation stump; E11.9 Type 2 diabetes mellitus without complications; E78.00 Pure hypercholesterolemia, unspecified; Z79.899 Other long term (current) drug therapy; Z88.8 Allergy status to other drugs, medicaments and biological substances; Z79.84 Long term (current) use of oral hypoglycemic drugs
CPT/HCPCS: 36415; 80048; 82962; 85025; J0690; J1815; J7040; J2405; J2704; J2765; J3010; J3490

== ENCOUNTER → 2020-10-29 | Outpatient (CLI) | payer MEDICARE, OTHER ==
[~2020-10-29] MED LIST changes: -BACITRACIN 50,000 UNIT in IV NORMAL SALINE 500ML BAG 500 ML IRR ONE; +BUPR300T3 PO; +HYDR-2769 PO; -HYDROmorphone 2 MG/ML VIAL IV PRN; -ISOS20TA2 PO; +ISOS20TA6 PO; -IV RINGERS,LACTATED 1000ML 1,000 ML IV SCH; -LIDOCAINE 1% PF 2 ML VIAL. ID PRN; -LISI-338 PO; +LISI-517 PO; -MORPHINE SULFATE 2 MG/ML VIAL. IV PRN; -ONDANSETRON PF 4 MG/2 ML VIAL. IV PRN; -fentaNYL PF VIAL 100 MCG/2 ML VIAL IV PRN
--- NOTE | 2020-10-29 12:32 | PDOC1 ---
INITIAL PAIN CONSULT DATE OF SERVICE: DOS: DATE: 10/29/20 TIME: 12:23 CHIEF COMPLAINT: Chief Complaint: Low back and left greater than right lower extremity pain HISTORY OF PRESENT ILLNESS: 54-year-old male presents history of pain in the low back bilateral lower extremities left greater than right for many years starting in 1983. Patient reports no specific injury or accident that he is aware of but is been getting worse over many years and worse over the past 1 year especially. Patient reports he is recently had a below-knee amputation on the right and using his left leg more which is causing more pain in the back and the left lower extremity patient reports pain across the low back rating the bilateral lower extremities worse on the left rating the posterior gluteus posterior thigh posterior lateral thigh as well as the anterior medial knee on the left and some on the anterior thigh on the right as well. Patient reports is worse with walking standing he has a significantly altered gait after the amputation and feels this is may have exacerbated the pain in the left leg as well. Patient has old studies from the plain films showing degenerative disc changes in the lumbar spine as well as the cervical spine. She has had no recent studies of the lumbar spine however. Patient reports that it wakes him sleep at least once every hour does affect his bowel bladder control but no incontinence he reports he has more frequency with bladder with the pain patient reports he does affect his body walk significantly uses a wheelchair when he can a walker also has a scooter. Patient has not had any formal therapies currently but is doing stretching and strength exercises on his own at home as he has had physical therapy multiple times in the past and is seeing wound clinic twice weekly and has home health visiting him with some wound care issues on his right below-knee amputation stump as well. Patient has been taking hydrocodone as well as gabapentin and Excedrin Migraine form all of which do decrease the pain but only by 10 to 20%. Patient rates his disability rating 0-10 10 being worst is a 9 with family home responsibilities 5 with recreation and self-care 10 with social activity occupation sexual behavior and 3 with life support activities. PAST MEDICAL HISTORY: PMH: Hypertension, diabetes, arthritis, obesity, gastroesophageal reflux, peripheral vascular disease, kidney disease, depression PREVIOUS SURGERIES: Past Surgical Hx: Below-knee amputation of the right lower extremity 2016, bilateral femoral stents placed 2017. CURRENT MEDICATIONS: Current Meds: Active Scripts Medications Dose Route/Sig Max Daily Dose Days Date Category Dose Instructions Flomax (Tamsulosin Hcl) 0.4 Mg Cap.er.24h 1 Cap PO DAILY 10/29/20 Reported Wellbutrin Xl (Bupropion Hcl) 300 Mg Tab.er.24h 1 Tab PO DAILY 10/29/20 Reported Hydrocodone-Apap 10-325 (Hydrocodone Bit/Acetaminophen) 1 Tab Tablet 1 Tab PO PRN Q6HRS PRN 10/29/20 Reported Nystatin 15 Gm Powder 1 Hi TP QID 7 04/17/20 Reported apply to affected area(s) [testosterone 1.62%] HS 04/17/20 Reported Buspirone Hcl 5 Mg Tablet 7.5 Mg PO BID 04/17/20 Reported Effexor Xr (Venlafaxine Hcl) 150 Mg Cap.er.24h 1 Cap PO DAILY 04/17/20 Reported Aspirin 325 Mg Tablet 1 Tab PO DAILY 04/17/20 Reported Lisinopril 2.5 Mg Tablet 1 Tab PO DAILY 04/17/20 Reported Crestor (Rosuvastatin Calcium) 5 Mg Tablet 20 Mg PO HS 04/02/20 Reported Isosorbide Mononitrate 20 Mg Tablet 30 Mg PO DAILY 04/02/20 Reported Carvedilol 25 Mg Tablet 12.5 Mg PO BIDWMEALS 04/02/20 Reported Torsemide 10 Mg Tablet 10 Mg PO PRN DAILY PRN 02/13/20 Reported Olanzapine 7.5 Mg Tablet 7.5 Mg PO DAILY 02/13/20 Reported NITROGLYCERIN SubLingual (Nitroglycerin) 0.4 Mg Tab.subl 0.4 Mg SL PRN Q5MIN PRN 02/13/20 Reported Reglan (Metoclopramide Hcl) 10 Mg Tablet 10 Mg PO QIDACHS 02/13/20 Reported Clopidogrel (Clopidogrel Bisulfate) 75 Mg Tablet 1 Tab PO DAILY 11/22/19 Reported Omeprazole 40 Mg Capsule.dr 40 Mg PO DAILY 11/22/19 Reported Levemir (Insulin Detemir) 100 Unit/1 Ml Vial 45 Unit SQ HS 11/22/19 Reported Novolog Flexpen (Insulin Aspart) 100 Unit/1 Ml Insuln.pen 10 Unit SQ PRN PRN 11/22/19 Reported Gabapentin (Gabapentin) 300 Mg Capsule 600 Mg PO TID 11/22/19 Reported Symbicort 160-4.5 Mcg Inhaler (Budesonide/Formoterol Fumarate) 10.2 Gm Hfa.aer.ad 2 Puff IH BID 11/22/19 Reported Excedrin Migraine Caplet (Aspirin/Acetaminophen/Caffeine) 1 Each Tablet 1 Each PO PRN PRN 11/22/19 Reported ALLERGIES; Allergies: Coded Allergies: I S O L A T I O N *CONTACT* (Verified Allergy, Unknown, 04/18/20) mrsa No Known Medication Allergies (Verified Allergy, Unknown, 04/18/20) FAMILY HISTORY: Family Hx: Heart disease, kidney disease, diabetes SOCIAL HISTORY: Social Hx: Patient does not chris alcohol smokes cigars does not use any illegal illicit or recreational drugs is lives with his spouse has no children living home and lives locally in [facility] he is currently on disability REVIEW OF SYSTEMS: ROS: Positive for those items mentioned in history of present illness, all systems are reviewed, otherwise negative ,and are complete full and well-documented on patient's chart. PHYSICAL EXAM: VS: Blood pressure is one 4/68 pulse 83 respirations 16 temperature 97.9 F height is 5 feet 9 inches weight is 260 pounds PE: PHYSICAL EXAMINATION: GENERAL: The patient is awake, alert, oriented, appropriate, very pleasant demeanor HEENT: Shows normocephalic, atraumatic. Extraocular movements are intact and symmetrical. Oral cavity: Mucous membranes moist and pink. NECK: Shows anterior throat supple without palpable lymphadenopathy noted. Swal low reflex symmetrical. CHEST: Shows normal on inspection. Breath sounds are clear bilaterally, distant but no rales rhonchi or wheezes auscultated.. HEART: Shows S1, S2 clear. No murmurs auscultated. ABDOMEN: Soft, nontender, nondistended, obese. No palpable organomegaly is noted. No rebound or guarding demonstrated. BACK: Shows spine grossly in the midline. Normal-appearing cervical lordotic curvature. There is increased thoracic kyphosis, some flattening of the lumbar lordotic curvature. Lumbar paraspinous muscles show symmetrical on inspection, on palpation shows some moderate tenderness diffusely throughout the upper, mi ddle and lower distribution of the paraspinous muscles bilaterally and also into the lower thoracic paraspinous musculature, firm and tender, but without specific trigger points, without radiation of pain. The patient has good rotational motion of the lumbar spine, both laterally as well as extension and flexion without significant difficulty. No tenderness over the spinous proce sses, sacrum or sacroiliac regions. EXTREMITIES: Lower extremities show deep tendon reflexes 1+ in the patellar and tendo calcaneus tendons. Motor exam is 4 on a scale of 5 with quadriceps and hamstring flexion and 4/5 with dorsiflexion tension quadricep and hamstring flexion on the left. Peripheral pulses are 1+ left posterior tibial. No peripheral edema is noted bilaterally. Patient has a bandaged right below-knee amputation stump SKIN: Shows warm and dry, good turgor. No edema. No sores, rashes or bruising throughout. IMPRESSION: Impression: 54-year-old male with long history of low back and bilateral lower extremity pain in a radicular fashion left greater than right. History of lumbar degenerative disc disease Right below-knee amputation 2016 with ongoing wound care. Diabetes Arthritis Obesity Hypertension Plan: Options were discussed with patient patient spouse who accompanied him his visit today. We discussed continued physical therapies exercises stretching and interventional techniques. Patient would like to pursue interventional techniques. We discussed a lumbar epidural steroid injection using description as well as anatomical models to describe the procedure. We will first obtain MRI scan lumbar spine disease had no studies in several years. Patient would continue with stretching strength exercises on his own and will wait for cl earance as well from patient's primary care physician to hold Plavix for 7 days prior to potential interventional techniques. Patient has been on hydrocodone 10 mg for an extended period of time (several years), with good tolerance and no significant side effects. We discussed that it is appropriate and safe for him to be on this medication as he takes 10 mg 3 times daily with good pain control for most daily activities to his abilities. Will forward this information to patient's primary care physician for continued medication management at their discretion. NIKOLE MCCOLLUM MD Oct 29, 2020 12:32
== END | disposition home or self-care (01) ==
LOC: PNCL 10:55
PROVIDERS: ATTEND Anesthesiology
DX: M54.5 Low back pain (principal); M79.604 Pain in right leg; M19.90 Unspecified osteoarthritis, unspecified site; E66.9 Obesity, unspecified; K21.9 Gastro-esophageal reflux disease without esophagitis; I12.9 Hypertensive chronic kidney disease with stage 1 through stage 4 chronic kidney disease, or unspecified chronic kidney disease; E11.22 Type 2 diabetes mellitus with diabetic chronic kidney disease; N18.9 Chronic kidney disease, unspecified; I25.10 Atherosclerotic heart disease of native coronary artery without angina pectoris; E78.00 Pure hypercholesterolemia, unspecified; N40.0 Benign prostatic hyperplasia without lower urinary tract symptoms; F41.9 Anxiety disorder, unspecified; F32.9 Major depressive disorder, single episode, unspecified; F17.210 Nicotine dependence, cigarettes, uncomplicated; Z86.73 Personal history of transient ischemic attack (TIA), and cerebral infarction without residual deficits; Z98.890 Other specified postprocedural states; Z90.49 Acquired absence of other specified parts of digestive tract; Z79.82 Long term (current) use of aspirin; Z79.899 Other long term (current) drug therapy; Z79.4 Long term (current) use of insulin; Z72.89 Other problems related to lifestyle; Z88.8 Allergy status to other drugs, medicaments and biological substances; Z82.49 Family history of ischemic heart disease and other diseases of the circulatory system; Z83.3 Family history of diabetes mellitus
CPT/HCPCS: G0463

== ENCOUNTER → 2020-11-03 | Outpatient (CLI) | payer MEDICARE, OTHER ==
--- NOTE | 2020-11-03 16:53 | RAD ---
Examination: Bilateral femurs 2 views each INDICATION: MRI clearance. COMPARISON: None. FINDINGS: The femurs are unremarkable. Soft tissues show extensive arterial calcifications on the left and surgical clips in the left scrotu m. On the right, femoral artery stent is present extending from the right common femoral artery to the p roximal popliteal artery. A right below the knee amputation is also evident. IMPRESSION: No radiopaque foreign body suspicious for an MRI incompatible implant. Electronically signed by: Cherie Capone MD (11/03/2020 4:50 PM) [id number]
--- NOTE | 2020-11-03 17:56 | RAD ---
EXAM: MRI Lumbar Spine without IV contrast INDICATION: Reason: LEFT LUMBAR RADICULOPATHY / Spl. Instructions: / History: . TECHNIQUE: Sagittal T1-w, T2-w, and STIR images, and axial T1-w and T2-w images of the lumbar spine. COMPARISON: None FINDINGS: There is motion artifact that degrades detail. The lowest fully formed disc is referred to as the L5-S1 level. ALIGNMENT: Alignment is within normal limits. OSSEOUS: No evidence of fracture or bone destruction. Intraosseous hemangioma is present at T11. CONUS MEDULLARIS & CAUDA EQUINA: The conus medullaris is in normal position. It terminates at T12-L1. The conus medullaris and cauda equina are intrinsically normal. SOFT TISSUES: Unremarkable. DISC LEVELS: T12-L1: Disc desiccation. No loss of height. No central canal or foraminal stenosis L1-L2: Disc osteophyte complex and bilateral facet hypertrophy results in mild bilateral foraminal st enosis. Central canal is patent. L2-L3: Disc bulge with desiccation and mild disc loss of height results along with facet hypertrophy and moderate bilateral foraminal narrowing. Mild central canal stenosis with AP diameter of 9.5 mm AP diameter (compared with 12 mm at the level above). L3-L4: Broad posterior protrusion with bilateral facet hypertrophy results in mild bilateral foramina l stenosis. No central canal AP narrowing to 10 mm. L4-L5: Mild facet hypertrophy. No significant central canal or foraminal stenosis. L5-S1: Bilateral facet hypertrophy results in moderate bilateral foraminal stenosis. IMPRESSION: Multilevel lumbar spinal degenerative spondylosis with varying degrees of central canal and foraminal narrowing as described. Electronically signed by: Cherie Capone MD (11/03/2020 5:54 PM) [id number]
== END | disposition home or self-care (01) ==
LOC: MRI 08:38
PROVIDERS: ATTEND Anesthesiology
DX: M47.27 Other spondylosis with radiculopathy, lumbosacral region (principal); M48.07 Spinal stenosis, lumbosacral region; Z89.511 Acquired absence of right leg below knee
CPT/HCPCS: 72148; 73552-50

== ENCOUNTER → 2020-12-01 | Outpatient (CLI) | payer MEDICARE, OTHER ==
[~2020-12-01] MED LIST changes: +IOHEXOL 180 MG/ML 10 ML VIAL. ONE; +methylPREDNISolone ACETATE 40 MG/ML VIAL. ONE; +methylPREDNISolone ACETATE 80 MG/ML VIAL. ONE
--- NOTE | 2020-12-01 09:15 | PDOC ---
Progress Note - Pain Clinic Date of Service: DOS: DATE: 12/01/20 TIME: 09:10 Diagnosis: Dx: Lumbar radiculopathy with lumbar degenerative disc disease History or Present Illness: HPI: 54-year-old male returns for follow-up status post initial evaluation and preauthorization with his insurance provider for lumbar epidural steroid injection. Patient is obtained now would like to proceed. Patient reports pain in the low back and the left lower extremity primarily posterior gluteus posterior lateral thigh lateral anterior thigh but also some on the right hip and thigh as well. Patient is again noted to be below-knee amputation on the right side. Patient reports his pain is a 10 on scale of 10; is worse over the past week 10; on average 10; and 9 at its least and is a 9 today. Patient reports no new motor or sensory deficits no new bowel or bladder incontinence still significant pain with standing walking weightbearing with the left lower extremity. Date of MRI scan we reviewed that with him today as well showing some significant bulging and posterior protrusion at the L3-4 level with bilateral foraminal stenosis. Patient reports no new motor or sensory deficits no new bowel or bladder incontinence or other complaints. Physical Exam: VS: Blood pressure is 138/78 pulse 85 respirations 16 temperature 98.0 F PE: PHYSICAL EXAMINATION: GENERAL: The patient is awake, alert, oriented, appropriate, very pleasant demeanor HEENT: Shows normocephalic, atraumatic. Extraocular movements are intact and symmetrical. Oral cavity: Mucous membranes moist and pink. NECK: Shows anterior throat supple without palpable lymphadenopathy noted. Swallow reflex symmetrical. CHEST: Shows normal on inspection. Breath sounds are clear bilaterally, no rales or rhonchi. HEART: Shows S1, S2 clear. No murmurs auscultated. ABDOMEN: Soft, nontender, nondistended, obese. No palpable organomegaly is noted. No rebound or guarding demonstrated. BACK: Shows spine grossly in the midline. Normal-appearing cervical lordotic curvature. There is slightly increased thoracic kyphosis, some minor flattening of the lumbar lordotic curvature. Lumbar paraspinous muscles show symmetrical on inspection, on palpation shows some moderate tenderness diffusely throughout the upper, middle and lower distribution of the paraspinous muscles without specific trigger points, without radiation of pain. The patient has good rotational motion of the lumbar spine, both laterally as well as extension and flexion without significant difficulty. No tenderness over the spinous processes, sacrum or sacroiliac regions. EXTREMITIES: Lower extremities show deep tendon reflexes 1+ in the patellar and tendo calcaneus tendon on the left. Motor exam is 4 on a scale of 5 with left dorsiflexion, extension, hamstrings and quadriceps. Peripheral pulses are 1+ posterior tibial, left. No peripheral edema is noted bilaterally. Lower extremities are warm and dry with noted below-knee amputation again on the right side. SKIN: Shows warm and dry, good turgor. No edema. No sores, rashes or bruising throughout. Procedure: Procedure: Options were discussed with the patient. Patient chart reviews her current medication regimen updated current review systems updated today as well. We will proceed with a lumbar epidural steroid injection today with fluoroscopic guidance. Risks were discussed including but not limited to: Bleeding, infection, possibility of epidural hematoma and subsequent neurological compromise, dural puncture, headaches, spinal cord and/or nerve damage, side effects of steroid medication, and poor results regarding pain control. Patient understands and wished to proceed. Patient will return to the clinic in approximate 2 is for follow-up, was counseled as return appointment activity level and side effects to be aware of. Medication Injected: Med Injected: Procedure is lumbar epidural steroid injection under local anesthetic using sterile prep and drape at the L4-5 level using C-arm fluoroscopic guidance in both AP and lateral views medications injected is 120 mg Depo-Medrol + 10 mL preservative-free normal saline and 2 mL contrast- condition at discharge is stable patient tolerated procedure well had no complications. Condition at Discharge: Condition at Discharge: Condition at discharge stable, patient already procedure well and had no complications. NIKOLE MCCOLLUM MD Dec 01, 2020 09:15
--- NOTE | 2020-12-01 09:15 | PDOC4 ---
PROCEDURE Procedure Patient is consented for lumbar epidural steroid injection. Risks were disc ussed including but not limited to: Bleeding, infection, possibility of epidural hematoma and subsequent neurological compromise, dural puncture, headaches, spinal cord and/or nerve damage, side effects of steroid medication, and poor results regarding pain control. Patient understands and wished to proceed. Procedure is lumbar epidural steroid injection under local anesthetic using sterile prep and drape at the L4-5 level using C-arm fluoroscopic guidance in both AP and lateral views medications injected is 120 mg Depo-Medrol + 10 mL preservative-free normal saline and 2 mL contrast- condition at discharge is stable patient tolerated procedure well had no complications. NIKOLE MCCOLLUM MD Dec 01, 2020 09:15
== END | disposition home or self-care (01) ==
LOC: PNCL 08:22
PROVIDERS: ATTEND Anesthesiology
DX: M51.16 Intervertebral disc disorders with radiculopathy, lumbar region (principal); I25.10 Atherosclerotic heart disease of native coronary artery without angina pectoris; E78.00 Pure hypercholesterolemia, unspecified; K21.9 Gastro-esophageal reflux disease without esophagitis; I12.9 Hypertensive chronic kidney disease with stage 1 through stage 4 chronic kidney disease, or unspecified chronic kidney disease; E11.22 Type 2 diabetes mellitus with diabetic chronic kidney disease; N18.9 Chronic kidney disease, unspecified; M19.90 Unspecified osteoarthritis, unspecified site; F41.9 Anxiety disorder, unspecified; F32.9 Major depressive disorder, single episode, unspecified; F17.210 Nicotine dependence, cigarettes, uncomplicated; Z90.49 Acquired absence of other specified parts of digestive tract; Z98.890 Other specified postprocedural states; Z79.82 Long term (current) use of aspirin; Z79.84 Long term (current) use of oral hypoglycemic drugs; Z79.899 Other long term (current) drug therapy; Z72.89 Other problems related to lifestyle
CPT/HCPCS: 62323; J1030; J1040; Q9965; 77002

== ENCOUNTER → 2020-12-15 | Outpatient (CLI) | payer MEDICARE, OTHER ==
[~2020-12-15] MED LIST changes: +BUSP7.5T PO; -IOHEXOL 180 MG/ML 10 ML VIAL. ONE; +OLAN5TAB9 PO; +PROAIR RESPICL90 MCG IH; +[UNRECOGNIZED DRUG - OTHER]; -methylPREDNISolone ACETATE 40 MG/ML VIAL. ONE; -methylPREDNISolone ACETATE 80 MG/ML VIAL. ONE
--- NOTE | 2020-12-15 09:28 | PDOC ---
Progress Note - Pain Clinic Date of Service: DOS: DATE: 12/15/20 TIME: 09:24 Diagnosis: Dx: Lumbar radiculopathy with lumbar degenerative disc disease History or Present Illness: HPI: 55-year-old male returns for follow-up status post lumbar epidural steroid injection x1. Patient reports your 100% improvement in the low back and his bilateral hips and on the left side after the injection for about 3 weeks patient ports the pain returned over the past few days in the low back and into the bilateral lower extremities more on the left than the right. Patient reports it is worse with weightbearing although he is basically wheelchair-bound he does have a below-knee amputation on the right. Patient ports when he does stand on his left leg he does feel the pain in his back and leg but his hips are doing much better patient reports his pain is a 7 on scale 10 is worse over the past week 6 on least and 7 on average and is a 7 today. Patient reports is burning and aching sharp and shooting in the lower extremity mostly in the left side posterior gluteus posterior lateral thigh anterior thigh anteromedial thigh medial lower leg on the left as well some pain into the stump on the right side also mostly anteriorly. Patient reports it wakes him from sleep at night if he lays on his right side about every 5-6 hours patient reports initially that he is doing much better with traveling doing household activities getting out of his wheelchair with much greater ease and comfort and sleeping better initially. Patient reports no new motor or sensory deficits no new bowel or bladder incontinence. Physical Exam: VS: Blood pressure is 119/73 pulse 81 respirations 16 temperature 97.7 F height and weight were deferred per patient request. PE: PHYSICAL EXAMINATION: GENERAL: The patient is awake, alert, oriented, appropriate, very pleasant demeanor HEENT: Shows normocephalic, atraumatic. Extraocular movements are intact and symmetrical. Oral cavity: Mucous membranes moist and pink. NECK: Shows anterior throat supple without palpable lymphadenopathy noted. Swallow reflex symmetrical. CHEST: Shows normal on inspection. Breath sounds are clear bilaterally, distant but no rales or rhonchi. HEART: Shows S1, S2 clear. No murmurs auscultated. ABDOMEN: Soft, nontender, nondistended, obese. No palpable organomegaly is noted. BACK: Shows spine grossly in the midline. Normal-appearing cervical lordotic curvature. There is slightly increased thoracic kyphosis, some minor flattening of the lumbar lordotic curvature. Lumbar paraspinous muscles show symmetrical on inspection, on palpation shows some moderate tenderness diffusely throughout the upper, middle and lower distribution of the paraspinous muscles, without specific trigger points, without radiation of pain. The patient has good rotational motion of the lumbar spine, both laterally as well as extension and flexion without significant difficulty. EXTREMITIES: Lower extremities show deep tendon reflexes 1+ in the patellar and tendo calcaneus tendons. Motor exam is 4/5, quadriceps and hamstring flexion and 4/5 dorsiflexion extension, quadriceps and hamstring flexion on the left. Peripheral pulses are 1+ left posterior tibial. No peripheral edema is noted bilaterally. Right below-knee amputation with gauze and bandage intact. SKIN: Shows warm and dry, good turgor. No edema. No sores, rashes or bruising throughout. Procedure: Procedure: Options discussed with patient. Patient chart reviews her current medication regimen updated current review of systems updated today as well. We will proceed with preauthorization for second lumbar epidural steroid injections patient did very well after the first 1 with the pain reduced for approximately 3 weeks and near 100% level especially in the hips. Patient reports pain returning down radicular fashion in the left L4-5 dermatomal distribution. We will preauthorize patient for lumbar epidural steroid injection translaminar approach at the L4-5 level. In the meantime patient will continue doing stretching strength exercises as best of his ability and taking oral analgesics as currently. Medication Injected: Med Injected: None Condition at Discharge: Condition at Discharge: Condition at discharge is stable. NIKOLE MCCOLLUM MD Dec 15, 2020 09:28
== END | disposition home or self-care (01) ==
LOC: PNCL 08:27
PROVIDERS: ATTEND Anesthesiology
DX: M51.16 Intervertebral disc disorders with radiculopathy, lumbar region (principal); I25.10 Atherosclerotic heart disease of native coronary artery without angina pectoris; I12.9 Hypertensive chronic kidney disease with stage 1 through stage 4 chronic kidney disease, or unspecified chronic kidney disease; E11.22 Type 2 diabetes mellitus with diabetic chronic kidney disease; N18.9 Chronic kidney disease, unspecified; E78.00 Pure hypercholesterolemia, unspecified; K21.9 Gastro-esophageal reflux disease without esophagitis; M19.90 Unspecified osteoarthritis, unspecified site; F32.9 Major depressive disorder, single episode, unspecified; F41.9 Anxiety disorder, unspecified; F17.210 Nicotine dependence, cigarettes, uncomplicated; Z79.82 Long term (current) use of aspirin; Z79.84 Long term (current) use of oral hypoglycemic drugs; Z79.899 Other long term (current) drug therapy; Z98.890 Other specified postprocedural states; Z88.8 Allergy status to other drugs, medicaments and biological substances
CPT/HCPCS: G0463

== ENCOUNTER → 2020-12-29 | Outpatient (CLI) | payer MEDICARE, OTHER ==
[~2020-12-29] MED LIST changes: +IOHEXOL 180 MG/ML 10 ML VIAL. ONE; +methylPREDNISolone ACETATE 40 MG/ML VIAL. ONE; +methylPREDNISolone ACETATE 80 MG/ML VIAL. ONE
--- NOTE | 2020-12-29 09:12 | PDOC ---
Progress Note - Pain Clinic Date of Service: DOS: DATE: 12/29/20 TIME: 09:08 Diagnosis: Dx: Lumbar radiculopathy with lumbar degenerative disc disease History or Present Illness: HPI: 55-year-old male returns to follow-up status post lumbar epidural steroid traction x1. Patient was awaiting preauthorization from his insurance provider after his last visit and he is obtained that now, and would like to proceed. Patient reports still pain in the low back left lower extremity posterior gluteus lateral thigh anterior thigh medial thigh patient has experienced increased pain over the past week or so with increased activity standing and changing positions patient reports pain is a 9 on scale 10 is worse over the past week 9 on average 8 its least is an 8 today. Patient reports no new motor or sensory deficit scribes pain is tingling sharp tight in the back stabbing and shooting radiating the left lower extremity. Patient reports initially was doing much better with distance traveling as well as household activities transferring in and out of his wheelchair as well with greater ease. Pain is now returned in the low back and left lower extremity. No new bowel or bladder incontinence or other complaints. Physical Exam: VS: Blood pressure is 138/81 pulse 80 respiration 16 temperature 97.6 F PE: PHYSICAL EXAMINATION: GENERAL: The patient is awake, alert, oriented, appropriate, very pleasant demeanor HEENT: Shows normocephalic, atraumatic. Extraocular movements are intact and symmetrical. Oral cavity: Mucous membranes moist and pink. NECK: Shows anterior throat supple without palpable lymphadenopathy noted. Swallow reflex symmetrical. CHEST: Shows normal on inspection. Breath sounds are clear bilaterally, distant but no rales or rhonchi. HEART: Shows S1, S2 clear. No murmurs auscultated. ABDOMEN: Soft, nontender, nondistended, obese. No palpable organomegaly is noted. BACK: Shows spine grossly in the midline. Normal-appearing cervical lordotic curvature. There is slightly increased thoracic kyphosis, some minor flattening of the lumbar lordotic curvature. Lumbar paraspinous muscles show symmetrical on inspection, on palpation shows some moderate tenderness diffusely throughout the upper, middle and lower distribution of the paraspinous muscles without specific trigger points, without radiation of pain. The patient has good rotational motion of the lumbar spine, both laterally as well as extension and flexion without significant difficulty. EXTREMITIES: Lower extremities show deep tendon reflexes 1+ in the patellar and tendo calcaneus tendons. Motor exam is 4/5 on the left. Right shows below-knee amputation which is bandaged. Peripheral pulses are 1+ left posterior tibial. No peripheral edema is noted bilaterally. Lower extremities are warm and dry. SKIN: Shows warm and dry, good turgor. No edema. No sores, rashes or bruising throughout. Procedure: Procedure: Options were discussed with the patient. Patient chart reviews his current medication regimen updated current review of systems updated today as well. We will proceed with a second in a series lumbar epidural steroid traction today with fluoroscopic guidance. Risks were discussed including but not limited to: Bleeding, infection, possibility of epidural hematoma and subsequent neurological compromise, dural puncture, headaches, spinal cord and/or nerve damage, side effects of steroid medication, and poor results regarding pain control. Patient understands and wished to proceed. Patient return to the clinic in approximate 2 weeks for follow-up, was counseled as return appointment, activity level, and side effects to be aware of. Medication Injected: Med Injected: Procedure is lumbar epidural steroid injection under local anesthetic using sterile prep and drape at the L4-5 level using C-arm fluoroscopic guidance in both AP and lateral views medications injected is 120 mg Depo-Medrol + 10 mL preservative-free normal saline and 2 mL contrast- condition at discharge is stable patient tolerated procedure well had no complications. Condition at Discharge: Condition at Discharge: Condition at discharge stable, patient already the procedure well and had no complications. NIKOLE MCCOLLUM MD Dec 29, 2020 09:12
--- NOTE | 2020-12-29 09:12 | PDOC4 ---
PROCEDURE Procedure Patient was consented for lumbar epidural steroid injection. Risks were dis cussed including but not limited to: Bleeding, infection, possibility of epidural hematoma and subsequent neurological compromise, dural puncture, headaches, spinal cord and/or nerve damage, side effects of steroid medication, and poor results regarding pain control. Patient understands and wished to proceed. Procedure is lumbar epidural steroid injection under local anesthetic using sterile prep and drape at the 4 5 level using C-arm fluoroscopic guidance in both AP and lateral views medications injected is 120 mg Depo-Medrol + 10 mL preservative-free normal saline and 2 mL contrast- condition at discharge is stable patient tolerated procedure well had no complications. NIKOLE MCCOLLUM MD Dec 29, 2020 09:12
== END | disposition home or self-care (01) ==
LOC: PNCL 08:14
PROVIDERS: ATTEND Anesthesiology
DX: M51.16 Intervertebral disc disorders with radiculopathy, lumbar region (principal); I25.10 Atherosclerotic heart disease of native coronary artery without angina pectoris; E78.00 Pure hypercholesterolemia, unspecified; K21.9 Gastro-esophageal reflux disease without esophagitis; I12.9 Hypertensive chronic kidney disease with stage 1 through stage 4 chronic kidney disease, or unspecified chronic kidney disease; N18.9 Chronic kidney disease, unspecified; E11.22 Type 2 diabetes mellitus with diabetic chronic kidney disease; M19.90 Unspecified osteoarthritis, unspecified site; F41.9 Anxiety disorder, unspecified; F32.9 Major depressive disorder, single episode, unspecified; F17.210 Nicotine dependence, cigarettes, uncomplicated; Z90.49 Acquired absence of other specified parts of digestive tract; Z98.890 Other specified postprocedural states; Z79.82 Long term (current) use of aspirin; Z79.4 Long term (current) use of insulin; Z79.899 Other long term (current) drug therapy
CPT/HCPCS: 62323; J1030; J1040; Q9965

== ENCOUNTER → 2021-01-12 | Outpatient (CLI) | payer MEDICARE, OTHER ==
[~2021-01-12] MED LIST changes: -IOHEXOL 180 MG/ML 10 ML VIAL. ONE; -methylPREDNISolone ACETATE 40 MG/ML VIAL. ONE; -methylPREDNISolone ACETATE 80 MG/ML VIAL. ONE
--- NOTE | 2021-01-12 09:03 | PDOC ---
Progress Note - Pain Clinic Date of Service: DOS: DATE: 01/12/21 TIME: 08:58 Diagnosis: Dx: Lumbar radiculopathy with lumbar degenerative disc disease History or Present Illness: HPI: 55-year-old male returns follow-up status post lumbar epidurals or injection x2. Patient reports about 50% improvement after the last injection initially had about percent improvement with the first injection but now about 50% overall after the last injection but still lasting through today patient last seen December 29 has been almost 3 weeks has had good results of decrease pain consistently patient reports still pain the low back into the right lower extremity posterior gluteus lateral thigh anterior thigh medial thigh medial knee on the right side and into the lower leg as patient does have a below-knee amputation still some pain in the stump as well. Patient reports its more sore across the low back burning and cramping stabbing at times aching tight and shooting in the right lower extremity on and off in intensity worse with changing positions laying on his right side patient reports it wakes him from sleep occasionally but not most nights he is fairly comfortable. Patient reports his pain is 7 on scale 10 is worse over the past week 5 on average 5 its least is a 5 today. Patient reports no new motor or sensory deficits no new bowel or bladder incontinence or other complaints. Patient continues to do some stretching exercises on his own with his left physical therapy also taking oral analgesics, hydrocodone and anti- inflammatories as they do help moderately. Physical Exam: VS: Blood pressure is 164/97 pulse 83 respirations 18 temperature 97.5 F height is 5 feet 9 inches weight is 190 pounds PE: PHYSICAL EXAMINATION: GENERAL: The patient is awake, alert, oriented, appropriate, very pleasant demeanor HEENT: Shows normocephalic, atraumatic. Extraocular movements are intact and symmetrical. Oral cavity: Mucous membranes moist and pink. Dentition is intact. NECK: Shows anterior throat supple without palpable lymphadenopathy noted. Swallow reflex symmetrical. CHEST: Shows normal on inspection. Breath sounds are clear bilaterally, distant but no rales or rhonchi. HEART: Shows S1, S2 clear. No murmurs auscultated. ABDOMEN: Soft, nontender, nondistended, obese. No palpable organomegaly is noted. No rebound or guarding demonstrated. BACK: Shows spine grossly in the midline. Normal-appearing cervical lordotic curvature. There is slightly increased thoracic kyphosis, some minor flattening of the lumbar lordotic curvature. Lumbar paraspinous muscles show symmetrical on inspection, on palpation shows some moderate tenderness diffusely throughout the upper, middle and lower distribution of the paraspinous muscles without specific trigger points, without radiation of pain. The patient has good rotational motion of the lumbar spine, both laterally as well as extension and flexion without significant difficulty. EXTREMITIES: Lower extremities show deep tendon reflexes 1+ in the patellar and tendo calcaneus tendons. Patient is noted to be right below-knee amputation with well bandage stump. Motor exam is 4 on a scale of 5 with right quadriceps and hamstring flexion and 4/5 on the left with dorsiflexion extension quadriceps and hamstrings flexion. Peripheral pulses are 1+ left posterior tibial. No peripheral edema is noted bilaterally. SKIN: Shows warm and dry, good turgor. No edema. No sores, rashes or bruising throughout. Procedure: Procedure: Options discussed with the patient. Patient chart was reviewed his his current medication regimen updated current review of systems updated today as well. 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 Patient will continue with stretching and strength exercises and oral analgesics as currently and once approved with his insurance provider will have him return for a translaminar approach L4-5 level lumbar epidural steroid injection at that time. Medication Injected: Med Injected: None Condition at Discharge: Condition at Discharge: Condition at discharge stable. NIKOLE MCCOLLUM MD January 12, 2021 09:03
== END | disposition home or self-care (01) ==
LOC: PNCL 08:40
PROVIDERS: ATTEND Anesthesiology
DX: M51.16 Intervertebral disc disorders with radiculopathy, lumbar region (principal); I25.10 Atherosclerotic heart disease of native coronary artery without angina pectoris; I10 Essential (primary) hypertension; E78.00 Pure hypercholesterolemia, unspecified; M19.90 Unspecified osteoarthritis, unspecified site; K21.9 Gastro-esophageal reflux disease without esophagitis; E11.9 Type 2 diabetes mellitus without complications; F41.9 Anxiety disorder, unspecified; F32.9 Major depressive disorder, single episode, unspecified; N40.0 Benign prostatic hyperplasia without lower urinary tract symptoms; F17.210 Nicotine dependence, cigarettes, uncomplicated; Z90.49 Acquired absence of other specified parts of digestive tract; Z98.890 Other specified postprocedural states; Z79.899 Other long term (current) drug therapy; Z79.82 Long term (current) use of aspirin; Z79.84 Long term (current) use of oral hypoglycemic drugs
CPT/HCPCS: G0463